=== PATIENT | male | born 1945 | race Caucasian/White ===

== ENCOUNTER 2017-04-02 00:43 | Day surgery (SDC) | payer MEDICARE, OTHER ==
[~2017-04-02 00:43] MED LIST: ALBU90OI; ALBU90OI INH; ALLO100 PO; ALPR.25; ALPR.5 PO; AMLO5 PO; ASPI325; ASPI81CH; Allergy Relief10 M1 PO; BECL40OI INH; Biotin1 MG; CALCIUM WITH V1 EACH PO; CALGLU500 PO; CEFP200 PO; CHOL10002 PO; CINA30 PO; COLCHICINE0.6 MG PO; DILT120; DILT60 PO; DOXY100 PO; FISH1000 PO; Gas-X80 MG; HYDR1TAB94 PO; LANS30EC; LEVA.63IS; LEVA1.25; LEVA1.25 INH; LEVFLO500 PO; LISI20; LISINOPRIL 40 MG; LORA.5 PO; LORA10ER; MERIBIN5 MG PO; METPRE4DP PO; MIDO5 PO; MONT10T; MONT10T PO; MULVITMINF PO; Mirapex0.25 MG PO; NITROSTAT PO; Nitrostat0.4 MG SL; OLME20; OLME20 PO; ONDA4ODT MM; OXYACE5T PO; Omeprazole20 M1 PO; PRAM.125; PRAM.5 PO; PRED10 PO; PRED20 PO; PRED5 PO; QNASL8.7 GM INH; QVAR; QVAR7.3 G1 INH; Rena-Vite Tabl0.8 MG PO; Renvela800 MG PO; SEVEC800 PO; SOTO80; STOOL SOFTENER100 MG PO; TEMA15 PO; TIOT18; TIOT18 INH; TRAZ50; TUMS PO; VITAMIN B-12 PO; VITB100 PO; Ventolin/Prove6.7 GM; WARF3; [UNRECOGNIZED DRUG - OTHER]; [UNRECOGNIZED DRUG - OTHER] INH; [UNRECOGNIZED DRUG - REMARK]
== END 2017-04-02 10:37 | disposition home or self-care (01) ==
LOC: WOUND 00:43
DX: Z48.00 Encounter for change or removal of nonsurgical wound dressing (principal); N30.41 Irradiation cystitis with hematuria; M65.041 Abscess of tendon sheath, right hand
CPT/HCPCS: G0463

== ENCOUNTER 2017-04-03 10:00 | Day surgery (SDC) | payer MEDICARE, OTHER | END 2017-04-03 22:57 | disposition home or self-care (01) | LOC: HBO 10:00 | DX: Z48.00 Encounter for change or removal of nonsurgical wound dressing (principal); N30.41 Irradiation cystitis with hematuria; M65.041 Abscess of tendon sheath, right hand | CPT/HCPCS: G0277 ==

== ENCOUNTER 2017-04-04 15:57 | Day surgery (SDC) | payer MEDICARE, OTHER | END 2017-04-04 22:41 | disposition home or self-care (01) | LOC: HBO 15:57 | DX: Z48.00 Encounter for change or removal of nonsurgical wound dressing (principal); N30.41 Irradiation cystitis with hematuria; M65.041 Abscess of tendon sheath, right hand | CPT/HCPCS: G0277 ==

== ENCOUNTER → 2017-07-23 | Outpatient (CLI) | payer MEDICARE, OTHER ==
[~2017-07-23] MED LIST changes: +MAGNESIUM PO; +OXYC5; +Prednisone50 MG PO; +QVAR REDIHALE10.6 G1 INH
== END ==
LOC: LAB 16:25
DX: L08.9 Local infection of the skin and subcutaneous tissue, unspecified (principal); C44.02 Squamous cell carcinoma of skin of lip; C44.722 Squamous cell carcinoma of skin of right lower limb, including hip; L97.819 Non-pressure chronic ulcer of other part of right lower leg with unspecified severity; L98.8 Other specified disorders of the skin and subcutaneous tissue; R60.0 Localized edema
CPT/HCPCS: 87070; 87077; 87147; 87186; 87205

== ENCOUNTER → 2017-08-22 | Outpatient (CLI) | payer MEDICARE, OTHER ==
[~2017-08-22] MED LIST changes: -MAGNESIUM PO; -OXYC5; -Prednisone50 MG PO; -QVAR REDIHALE10.6 G1 INH
== END | disposition home or self-care (01) ==
LOC: LAB SHORT 18:28 → LAB 18:28
DX: Z48.817 Encounter for surgical aftercare following surgery on the skin and subcutaneous tissue (principal)
CPT/HCPCS: 87070; 87205

== ENCOUNTER → 2017-08-30 | Outpatient (CLI) | payer MEDICARE, OTHER | LOC: LAB 15:14 → LAB SHORT 15:14 | DX: Z48.817 Encounter for surgical aftercare following surgery on the skin and subcutaneous tissue (principal); L08.9 Local infection of the skin and subcutaneous tissue, unspecified | CPT/HCPCS: 87070; 87205 ==

== ENCOUNTER 2017-10-23 18:50 | Emergency (ER) | payer MEDICARE, OTHER ==
[~2017-10-23] VITALS: Ht 180.3 cm; Wt 95.2 kg
[2017-10-23 19:31] LABS: BASOPHILS ABSOLUTE AUTO 0.03 K/mm3 (0.00-0.23); BASOPHILS PERCENT AUTO 1 % (0-2); EOSINOPHILS ABSOLUTE AUTO 0.15 K/mm3 (0.00-0.68); EOSINOPHILS PERCENT AUTO 3 % (0-6); Hematocrit 31.6 % (37.0-53.0); Hemoglobin 10.1 g/dL (13.5-17.5); IMMATURE GRAN ABSOLUTE AUTO 0.03 K/mm3 (0.00-0.10); IMMATURE GRAN PERCENT AUTO 1 % (0-1); LYMPHOCYTES ABSOLUTE AUTO 0.96 K/mm3 (0.84-5.20); LYMPHOCYTES PERCENT AUTO 17 % (21-46); MONOCYTES ABSOLUTE AUTO 0.66 K/mm3 (0.16-1.47); MONOCYTES PERCENT AUTO 12 % (4-13); Mean Corpuscular HGB 31.7 pg (26.0-34.0); Mean Corpuscular Volume 99 fL (80-100); Mean Platelet Volume 10.1 fL (9.1-12.4); NEUTROPHILS ABSOLUTE AUTO 3.82 K/mm3 (1.96-9.15); NEUTROPHILS PERCENT AUTO 68 % (41-73); Platelet Count 123 K/mm3 (150-400); RDW Coefficient Variation 15.6 % (11.7-14.2); RDW Standard Deviation 55.9 fL (35.1-46.3); Red Blood Cell Count 3.19 M/mm3 (4.30-5.90); White Blood Cell Count 5.65 K/mm3 (4.00-11.30)
[2017-10-23 19:36] LABS: Albumin, Blood 3.6 g/dL (3.4-5.0); Albumin/Globulin Ratio 1.2 (0.8-1.8); Bilirubin, Total 0.5 mg/dL (0.1-1.0); Bun/Creatinine Ratio 7.2 (12.0-20.0); Calcium, Blood 9.1 mg/dL (8.5-10.1); Creatinine, Blood 3.75 mg/dL (0.60-1.20); Globulin, Blood 3.1 g/dL (2.2-4.0); Potassium, Blood 3.9 mmol/L (3.5-5.5); Total Protein, Blood 6.7 g/dL (6.4-8.2)
[2017-10-23] MEDS ORDERED: Prednisone50 MG PO (21:15)
== END 2017-10-23 21:51 | disposition home or self-care (01) ==
LOC: ER 18:50
PROVIDERS: Physician Assistant
DX: J45.909 Unspecified asthma, uncomplicated (principal); N18.6 End stage renal disease; Z88.1 Allergy status to other antibiotic agents; Z88.8 Allergy status to other drugs, medicaments and biological substances; Z79.899 Other long term (current) drug therapy; Z79.52 Long term (current) use of systemic steroids; Z79.2 Long term (current) use of antibiotics; I48.91 Unspecified atrial fibrillation
CPT/HCPCS: 36415; 71046; 80053; 83880; 85025; 93005; 93010; 94640; 96374; 99284; J2930

== ENCOUNTER 2017-12-16 19:43 | Emergency (ER) | payer MEDICARE, OTHER ==
[~2017-12-16] VITALS: Ht 182.9 cm; Wt 95.2 kg
[~2017-12-16 19:43] MED LIST changes: +Prednisone50 MG PO
[2017-12-16] MEDS ORDERED: QVAR REDIHALE10.6 G1 INH (20:54)
[2017-12-16 20:58] LABS: BASOPHILS ABSOLUTE AUTO 0.02 K/mm3 (0.00-0.23); BASOPHILS PERCENT AUTO 0 % (0-2); EOSINOPHILS ABSOLUTE AUTO 0.28 K/mm3 (0.00-0.68); EOSINOPHILS PERCENT AUTO 4 % (0-6); Hematocrit 32.9 % (37.0-53.0); Hemoglobin 10.7 g/dL (13.5-17.5); IMMATURE GRAN ABSOLUTE AUTO 0.05 K/mm3 (0.00-0.10); IMMATURE GRAN PERCENT AUTO 1 % (0-1); LYMPHOCYTES ABSOLUTE AUTO 0.72 K/mm3 (0.84-5.20); LYMPHOCYTES PERCENT AUTO 10 % (21-46); MONOCYTES ABSOLUTE AUTO 0.65 K/mm3 (0.16-1.47); MONOCYTES PERCENT AUTO 9 % (4-13); Mean Corpuscular HGB 32.5 pg (26.0-34.0); Mean Corpuscular HGB Conc 32.5 g/dL (31.5-36.5); Mean Corpuscular Volume 100 fL (80-100); Mean Platelet Volume 9.8 fL (9.1-12.4); NEUTROPHILS ABSOLUTE AUTO 5.18 K/mm3 (1.96-9.15); NEUTROPHILS PERCENT AUTO 75 % (41-73); Platelet Count 128 K/mm3 (150-400); RDW Coefficient Variation 15.8 % (11.7-14.2); RDW Standard Deviation 57.4 fL (35.1-46.3); Red Blood Cell Count 3.29 M/mm3 (4.30-5.90)
[2017-12-16 21:19] LABS: Troponin I <0.015 ng/mL (0.000-0.040)
[2017-12-16 21:20] LABS: Alanine Aminotransfer (ALT/SGP 29 U/L (12-78); Albumin, Blood 3.5 g/dL (3.4-5.0); Albumin/Globulin Ratio 1.1 (0.8-1.8); Alk Phos 65 U/L (50-136); Anion Gap 9 mmol/L (6-16); Aspartate Aminotrans (AST/SGOT 19 U/L (12-37); Bilirubin, Total 0.7 mg/dL (0.1-1.0); Blood Urea Nitrogen 41 mg/dL (8-24); Bun/Creatinine Ratio 9.3 (12.0-20.0); CO2, Blood 35 mmol/L (21-32); Calcium, Blood 7.9 mg/dL (8.5-10.1); Chloride, Blood 99 mmol/L (98-108); Creatinine, Blood 4.43 mg/dL (0.60-1.20); Globulin, Blood 3.3 g/dL (2.2-4.0); Glomerular Filtration Rate 14 (60-); Glucose, Blood 105 mg/dL (70-99); Potassium, Blood 3.9 mmol/L (3.5-5.5); Sodium, Blood 143 mmol/L (136-145); Total Protein, Blood 6.8 g/dL (6.4-8.2)
== END 2017-12-16 22:42 | disposition home or self-care (01) ==
LOC: ER 19:43
PROVIDERS: Emergency Medicine
DX: J18.9 Pneumonia, unspecified organism (principal); Z79.899 Other long term (current) drug therapy; Z79.52 Long term (current) use of systemic steroids
CPT/HCPCS: 36415; 71046; 80053; 83880; 84484; 85025; 93005; 93010; 99285-25

== ENCOUNTER 2018-01-08 18:53 | Emergency (ER) | payer MEDICARE, OTHER ==
[~2018-01-08] VITALS: Ht 182.9 cm; Wt 94.3 kg
[~2018-01-08 18:53] MED LIST changes: +QVAR REDIHALE10.6 G1 INH
[2018-01-08 19:24] LABS: BASOPHILS ABSOLUTE AUTO 0.02 K/mm3 (0.00-0.23); BASOPHILS PERCENT AUTO 0 % (0-2); EOSINOPHILS ABSOLUTE AUTO 0.16 K/mm3 (0.00-0.68); EOSINOPHILS PERCENT AUTO 3 % (0-6); Hemoglobin 10.3 g/dL (13.5-17.5); IMMATURE GRAN ABSOLUTE AUTO 0.04 K/mm3 (0.00-0.10); IMMATURE GRAN PERCENT AUTO 1 % (0-1); LYMPHOCYTES PERCENT AUTO 13 % (21-46); MONOCYTES ABSOLUTE AUTO 0.57 K/mm3 (0.16-1.47); MONOCYTES PERCENT AUTO 11 % (4-13); Mean Corpuscular HGB 32.2 pg (26.0-34.0); Mean Corpuscular HGB Conc 32.2 g/dL (31.5-36.5); Mean Corpuscular Volume 100 fL (80-100); Mean Platelet Volume 9.6 fL (9.1-12.4); NEUTROPHILS ABSOLUTE AUTO 3.96 K/mm3 (1.96-9.15); NEUTROPHILS PERCENT AUTO 73 % (41-73); Platelet Count 126 K/mm3 (150-400); RDW Coefficient Variation 14.9 % (11.7-14.2); White Blood Cell Count 5.45 K/mm3 (4.00-11.30)
[2018-01-08 19:51] LABS: Albumin, Blood 3.5 g/dL (3.4-5.0); Albumin/Globulin Ratio 1.1 (0.8-1.8); Bilirubin, Total 0.6 mg/dL (0.1-1.0); Bun/Creatinine Ratio 5.8 (12.0-20.0); Calcium, Blood 8.2 mg/dL (8.5-10.1); Creatinine, Blood 3.79 mg/dL (0.60-1.20); Globulin, Blood 3.1 g/dL (2.2-4.0); Potassium, Blood 4.1 mmol/L (3.5-5.5); Total Protein, Blood 6.6 g/dL (6.4-8.2); Troponin I 0.019 ng/mL (0.000-0.040)
[2018-01-08] MEDS ORDERED: LEVA1.25 INH (21:32)
[2018-01-08] MEDS ORDERED: OXYC5 (21:40)
[2018-01-08] MEDS ORDERED: MAGNESIUM PO (21:42)
== END 2018-01-08 22:30 | disposition home or self-care (01) ==
LOC: ER 18:53
PROVIDERS: Physician Assistant
DX: R06.02 Shortness of breath (principal); Z88.1 Allergy status to other antibiotic agents; Z88.8 Allergy status to other drugs, medicaments and biological substances; Z79.899 Other long term (current) drug therapy
CPT/HCPCS: 36415; 71046; 80053; 84484; 85025; 93005; 93010; 99285-25

== ENCOUNTER → 2018-08-26 | Outpatient (CLI) | payer MEDICARE, OTHER ==
[~2018-08-26] MED LIST changes: +MAGNESIUM PO; +OXYC5
== END ==
LOC: LAB SHORT 09:41 → LAB 09:41
DX: D48.5 Neoplasm of uncertain behavior of skin (principal); L08.9 Local infection of the skin and subcutaneous tissue, unspecified; L57.0 Actinic keratosis; L97.819 Non-pressure chronic ulcer of other part of right lower leg with unspecified severity; L82.1 Other seborrheic keratosis; L81.4 Other melanin hyperpigmentation
CPT/HCPCS: 87070; 87077; 87147; 87186; 87205

== ENCOUNTER 2018-12-09 08:08 | Day surgery (SDC) | payer MEDICARE, OTHER ==
[~2018-12-09] VITALS: Ht 180.3 cm; Wt 88.0 kg
[~2018-12-09 08:08] MED LIST changes: +QVAR REDIHALE10.6 G1; +Renal Caps Softg1 MG; +SEVEC800
[2018-12-09] MEDS ORDERED: ALPR.5 (08:09)
[2018-12-09] MEDS ORDERED: TUMS500 MG PO (08:09)
[2018-12-09] MEDS ORDERED: ZINC220 (08:10)
[2018-12-09] MEDS ORDERED: PRED5 (08:10)
[2018-12-09] MEDS ORDERED: ONDA4ODT (08:11)
[2018-12-09] MEDS ORDERED: ACET500 (08:11)
[2018-12-09] MEDS ORDERED: ISODIN10 (08:12)
[2018-12-09] MEDS ORDERED: Vitamin D2000 UNIT (08:12)
[2018-12-09] MEDS ORDERED: MIDO5 (08:12)
[2018-12-09] MEDS ORDERED: SERT50 (08:13)
--- NOTE | 2018-12-09 11:22 | NUR ---
PT IV DC'D TIP INTACT, DRESSED, ATE BREAKFAST, PERMACATH DRESSING STABLE, DC'D BY WC BY MARSHALL RAY WITH DRIVING PT HOME. VSS.
== END 2018-12-09 11:02 | disposition home or self-care (01) ==
LOC: MHTC 08:08
DX: I12.0 Hypertensive chronic kidney disease with stage 5 chronic kidney disease or end stage renal disease (principal); N18.6 End stage renal disease; I48.0 Paroxysmal atrial fibrillation; K21.9 Gastro-esophageal reflux disease without esophagitis; J45.909 Unspecified asthma, uncomplicated; F41.9 Anxiety disorder, unspecified; F32.9 Major depressive disorder, single episode, unspecified; M81.0 Age-related osteoporosis without current pathological fracture; D64.9 Anemia, unspecified; N40.1 Benign prostatic hyperplasia with lower urinary tract symptoms; N13.8 Other obstructive and reflux uropathy; G25.81 Restless legs syndrome; G47.00 Insomnia, unspecified; I73.9 Peripheral vascular disease, unspecified; M41.9 Scoliosis, unspecified; Z99.2 Dependence on renal dialysis; Z88.1 Allergy status to other antibiotic agents; Z88.8 Allergy status to other drugs, medicaments and biological substances; Z79.899 Other long term (current) drug therapy
CPT/HCPCS: 36558; 76937; 99152; 99153; C1750; C1769; J0690; J1644; J2250; J3010; J7040

== ENCOUNTER 2018-12-24 11:20 | Day surgery (SDC) | payer MEDICARE, OTHER ==
[~2018-12-24 11:20] MED LIST changes: +ACET500; +ALPR.5; +ISODIN10; +MIDO5; +ONDA4ODT; +PRED5; +SERT50; +TUMS500 MG PO; +Vitamin D2000 UNIT; +ZINC220
== END 2018-12-24 18:40 | disposition home or self-care (01) ==
LOC: ATC 11:20
DX: N18.6 End stage renal disease (principal); D63.1 Anemia in chronic kidney disease; N25.81 Secondary hyperparathyroidism of renal origin; D50.9 Iron deficiency anemia, unspecified; Z79.899 Other long term (current) drug therapy; Z99.2 Dependence on renal dialysis
CPT/HCPCS: 36415; 36430; 86850; 86900; 86901; 86923; J7050; P9016

== ENCOUNTER 2019-06-16 13:41 | Inpatient (IN) | payer MEDICARE, OTHER ==
[~2019-06-16] VITALS: Ht 182.9 cm; Wt 89.4 kg
[~2019-06-16 13:41] MED LIST changes: -ALBU90OI INH; -ALLO100 PO; -ALPR.5; -DILT60 PO; -ISODIN10; -MERIBIN5 MG PO; -MIDO5; -MONT10T PO; -NITROSTAT PO; -OXYC5; -Omeprazole20 M1 PO; -PRED5; -QVAR REDIHALE10.6 G1; -TIOT18 INH; -VITAMIN B-12 PO; -Vitamin D2000 UNIT; -ZINC220
[2019-06-16 14:15] LABS: BASOPHILS ABSOLUTE AUTO 0.09 K/mm3 (0.00-0.23); BASOPHILS PERCENT AUTO 2 % (0-2); EOSINOPHILS ABSOLUTE AUTO 0.23 K/mm3 (0.00-0.68); EOSINOPHILS PERCENT AUTO 4 % (0-6); Hematocrit 36.5 % (37.0-53.0); Hemoglobin 11.7 g/dL (13.5-17.5); IMMATURE GRAN ABSOLUTE AUTO 0.02 K/mm3 (0.00-0.10); IMMATURE GRAN PERCENT AUTO 0 % (0-1); LYMPHOCYTES ABSOLUTE AUTO 1.04 K/mm3 (0.84-5.20); LYMPHOCYTES PERCENT AUTO 17 % (21-46); MONOCYTES ABSOLUTE AUTO 0.72 K/mm3 (0.16-1.47); MONOCYTES PERCENT AUTO 12 % (4-13); Mean Corpuscular HGB 32.6 pg (26.0-34.0); Mean Corpuscular HGB Conc 32.1 g/dL (31.5-36.5); Mean Corpuscular Volume 102 fL (80-100); Mean Platelet Volume 10.6 fL (9.1-12.4); NEUTROPHILS ABSOLUTE AUTO 3.88 K/mm3 (1.96-9.15); NEUTROPHILS PERCENT AUTO 65 % (41-73); Platelet Count 159 K/mm3 (150-400); RDW Coefficient Variation 16.1 % (11.7-14.2); RDW Standard Deviation 59.9 fL (35.1-46.3); Red Blood Cell Count 3.59 M/mm3 (4.30-5.90); White Blood Cell Count 5.98 K/mm3 (4.00-11.30)
[2019-06-16 14:31] LABS: International Normalized Ratio 1.05; Prothrombin Time Results 11.2 Sec (9.7-11.5)
[2019-06-16 14:36] LABS: Albumin, Blood 3.7 g/dL (3.4-5.0); Albumin/Globulin Ratio 1.2 (0.8-1.8); Bilirubin, Total 0.8 mg/dL (0.1-1.0); Bun/Creatinine Ratio 6.9 (12.0-20.0); Calcium, Blood 10.7 mg/dL (8.5-10.1); Creatinine, Blood 6.54 mg/dL (0.60-1.20); Globulin, Blood 3.1 g/dL (2.2-4.0); Potassium, Blood 3.5 mmol/L (3.5-5.5); Total Protein, Blood 6.8 g/dL (6.4-8.2)
[2019-06-16] MEDS ORDERED: VITAMIN D32000 UNI3 PO (15:25)
[2019-06-16] MEDS ORDERED: DILT60 PO (15:58)
[2019-06-16] MEDS ORDERED: ALLO100 PO (15:58)
[2019-06-16] MEDS ORDERED: COLCHICINE0.6 MG PO (15:59)
[2019-06-16] MEDS ORDERED: Omeprazole20 M1 PO (15:59)
[2019-06-16] MEDS ORDERED: MONT10T PO (15:59)
[2019-06-16] MEDS ORDERED: PRAM.125 PO (16:01)
[2019-06-16] MEDS ORDERED: PRED5 PO (16:02)
[2019-06-16] MEDS ORDERED: Isosorbide Dinit5 MG PO (16:03)
[2019-06-16] MEDS ORDERED: Vitamin D2000 UNIT PO (16:03)
[2019-06-16] MEDS ORDERED: RENA VITE PO (16:04)
[2019-06-16] MEDS ORDERED: Calcium Acetat667 MG PO (16:04)
[2019-06-16] MEDS ORDERED: MERIBIN5 MG PO (16:07)
[2019-06-16] MEDS ORDERED: VITAMIN B-12 PO (16:08)
[2019-06-16] MEDS ORDERED: ZINC50 MG PO (16:09)
[2019-06-16] MEDS ORDERED: TIOT18 INH (16:09)
[2019-06-16] MEDS ORDERED: Flovent 110 MCG12 GM INH (16:12)
[2019-06-16] MEDS ORDERED: NITROGLYCERIN0.4 M1 SL (16:15)
[2019-06-16] MEDS ORDERED: Percocet 5-3251 EACH PO (16:17)
[2019-06-16] MEDS ORDERED: ALPR.5 PO (16:18)
[2019-06-16] MEDS ORDERED: Midodrine HCl10 MG PO (16:19)
[2019-06-16] MEDS ORDERED: LEVA1.25 INH (16:19)
[2019-06-16] MEDS ORDERED: ALBU90OI INH (16:22)
--- NOTE | 2019-06-16 19:15 | NUR ---
BEDSIDE REPORT REC'D FROM MELANIA RAY. DR. GREGORIO IN TO SEE PT. SPOUSE AT BEDSIDE. VSS. ASSESSMENT NOTED. CALL LIGHT IN REACH. DIALYSIS FISTULA LEFT ARM. IV RT WRIST.
--- NOTE | 2019-06-16 19:26 | NUR ---
ADMIT NOTE RECEIVED REPORT FROM CORY KNAPP IN ED. PT TO ROOM AT 1825, 3 PERSON TRANSFER WITH SLIDER SHEET. PT ORIENTED TO ROOM AND CALL LIGHT. EDUCATED ON FALL RISK AND USE OF CALL LIGHT. HX OF MRSA, CLEARING SWABS COLLECTED AND SENT. PT A&Ox4; CALM AND COOPERATIVE WITH CARE. PT ON RA, BREATHING EVEN AND UNLABORED. VSS. NO OTHER ACUTE CHANGES NOTED DURING SHIFT. REPORT GIVEN TO ONCOMING RN
[2019-06-16 20:15] LABS: Source, Urine Catheter
[2019-06-16 20:21] LABS: Bilirubin, Urine Neg (Neg); Blood, Urine 3+ (Neg); Glucose Qualitative, Urine Neg (Neg); Ketones, Urine Neg (Neg); Leukocyte Esterase, Urine 3+ (Neg); Nitrite, Urine Neg (Neg); Protein, Urine 3+ (Neg); Specific Gravity, Urine 1.015 (1.003-1.022); Urobilinogen, Urine NORM (Normal)
[2019-06-16 20:25] LABS: Appearance, Urine Hazy (Clear); Color, Urine Yellow (P-Yellow)
[2019-06-16 20:28] LABS: Red Blood Cells, Urine 0-2 /hpf (0-2); White Blood Cells, Urine 25-50 /hpf (0-5)
[2019-06-16 20:30] LABS: Bacteria Few /hpf; Squamous Epithelial Cells Rare /hpf (Few)
[2019-06-17 04:13] LABS: BASOPHILS ABSOLUTE AUTO 0.07 K/mm3 (0.00-0.23); BASOPHILS PERCENT AUTO 1 % (0-2); EOSINOPHILS PERCENT AUTO 2 % (0-6); Hematocrit 32.7 % (37.0-53.0); Hemoglobin 10.4 g/dL (13.5-17.5); IMMATURE GRAN ABSOLUTE AUTO 0.02 K/mm3 (0.00-0.10); IMMATURE GRAN PERCENT AUTO 0 % (0-1); LYMPHOCYTES ABSOLUTE AUTO 0.82 K/mm3 (0.84-5.20); LYMPHOCYTES PERCENT AUTO 15 % (21-46); MONOCYTES ABSOLUTE AUTO 0.64 K/mm3 (0.16-1.47); MONOCYTES PERCENT AUTO 12 % (4-13); Mean Corpuscular HGB 32.2 pg (26.0-34.0); Mean Corpuscular HGB Conc 31.8 g/dL (31.5-36.5); Mean Corpuscular Volume 101 fL (80-100); Mean Platelet Volume 10.5 fL (9.1-12.4); NEUTROPHILS ABSOLUTE AUTO 3.91 K/mm3 (1.96-9.15); NEUTROPHILS PERCENT AUTO 70 % (41-73); Platelet Count 139 K/mm3 (150-400); RDW Standard Deviation 59.3 fL (35.1-46.3); Red Blood Cell Count 3.23 M/mm3 (4.30-5.90); White Blood Cell Count 5.56 K/mm3 (4.00-11.30)
[2019-06-17 04:35] LABS: Magnesium, Blood 1.9 mg/dL (1.6-2.4)
[2019-06-17 04:36] LABS: Albumin, Blood 3.2 g/dL (3.4-5.0); Albumin/Globulin Ratio 1.1 (0.8-1.8); Bilirubin, Total 0.8 mg/dL (0.1-1.0); Bun/Creatinine Ratio 6.5 (12.0-20.0); Calcium, Blood 10.5 mg/dL (8.5-10.1); Creatinine, Blood 7.81 mg/dL (0.60-1.20); Globulin, Blood 2.8 g/dL (2.2-4.0); Phosphorus, Blood 2.5 mg/dL (2.5-4.9); Potassium, Blood 3.7 mmol/L (3.5-5.5)
--- NOTE | 2019-06-17 06:25 | NUR ---
SHIFT SUMMARY NO SIG CHANGES AND NO NEW COMPLAINTS SINCE ARRIVING TO ROOM AT SHIFT CHANGE LAST EVENING. DR PAYNE IN TO SEE PT LAST NIGHT AND THIS MORNING. PT HAS BEEN NPO [place] FOR PARMINDER THIS AM WITH DR GREGORIO. PT ANXIOUS ABOUT OUTCOME. HAS CALLED APPROPRIATELY T/O THE NIGHT FOR STANDBY BR ASSIST. ELLIE LIGHT IN REACH. WILL CONT TO MONITOR, DOCUMENT ANY CHANGES AND WILL REPORT TO DAY SHIFT RN.
--- NOTE | 2019-06-17 17:36 | NUR ---
SHIFT NOTE PT HAD PARMINDER THIS AM, MORNING MEDS WERE HELD UNTIL PT WAS AWAKE POST PROCEDURE TO TAKE PO MEDICATIONS. PT HARD OF HEARTING WITH HEARING AIDS IN, S/O REMAINS AT BEDSIDE. PT ALERT, ANSWERS QUESTIONS APPROPRIATELY. PT REPORTS THAT HE HAS MILD DISCOMFORT POST PARMINDER, REPORTS AN EPISODE OF PINK TINGED SPUTUM THIS AFTERNOON. PT EATING AND DRINKING WELL W/O DIFF.
[2019-06-17 17:52] LABS: Vancomycin, Random 17.1 ug/mL
--- NOTE | 2019-06-18 04:12 | NUR ---
BED EXIT ALARM X TWO. PATIENT UP TO SIT ON SIDE OF BED. PATIENT NOT SURE SHAT TIME IT IS AND WHY HE IS IN HOSPITAL. PATIENT REORIENTED AND BACK IN BED. ALARM ACTIVATED. CALL LIGHT IN REACH.
--- NOTE | 2019-06-18 04:35 | NUR ---
SHIFT SUMMARY PATIENT HAD NO ACUTE CHANGES OBSERVED. AXOX 3 AND FORGETFUL AT TIMES. SBA TO BSC. DOUGLAS. TAKES MEDICATION WHOLE WITH WATER. PIV REMAINS INTACT. BREWERY TECHNICIAN REPORTS AFIB 103. FISTULA LEFT ARM. ON 2L O2 NC. DENIES PAIN, SOB, AND N/V. BED EXIT ALARM X TWO THIS SHIFT SITTING ON SIDE OF BED NOT SURE WHY HE IS HERE. REORIENTED TO TIME AND PLACE. CALL LIGHT IN REACH. BED IN LOWEST POSITION AND ALARM ACTIVATED. WILL CONTINUE TO MONITOR UNTIL DAY SHIFT NURSE ASSUMES CARE.
[2019-06-18 05:42] LABS: BASOPHILS ABSOLUTE AUTO 0.04 K/mm3 (0.00-0.23); BASOPHILS PERCENT AUTO 1 % (0-2); EOSINOPHILS ABSOLUTE AUTO 0.03 K/mm3 (0.00-0.68); EOSINOPHILS PERCENT AUTO 1 % (0-6); Hematocrit 31.8 % (37.0-53.0); IMMATURE GRAN ABSOLUTE AUTO 0.03 K/mm3 (0.00-0.10); IMMATURE GRAN PERCENT AUTO 1 % (0-1); LYMPHOCYTES ABSOLUTE AUTO 0.48 K/mm3 (0.84-5.20); LYMPHOCYTES PERCENT AUTO 8 % (21-46); MONOCYTES ABSOLUTE AUTO 0.37 K/mm3 (0.16-1.47); MONOCYTES PERCENT AUTO 6 % (4-13); Mean Corpuscular HGB 31.7 pg (26.0-34.0); Mean Corpuscular HGB Conc 31.4 g/dL (31.5-36.5); Mean Corpuscular Volume 101 fL (80-100); Mean Platelet Volume 10.8 fL (9.1-12.4); NEUTROPHILS ABSOLUTE AUTO 4.93 K/mm3 (1.96-9.15); NEUTROPHILS PERCENT AUTO 84 % (41-73); Platelet Count 144 K/mm3 (150-400); RDW Standard Deviation 58.2 fL (35.1-46.3); Red Blood Cell Count 3.15 M/mm3 (4.30-5.90); White Blood Cell Count 5.88 K/mm3 (4.00-11.30)
[2019-06-18 06:03] LABS: Magnesium, Blood 2.1 mg/dL (1.6-2.4)
[2019-06-18 06:08] LABS: Albumin, Blood 3.2 g/dL (3.4-5.0); Bilirubin, Total 0.6 mg/dL (0.1-1.0); Calcium, Blood 10.4 mg/dL (8.5-10.1); Globulin, Blood 3.1 g/dL (2.2-4.0); Phosphorus, Blood 3.4 mg/dL (2.5-4.9); Potassium, Blood 4.1 mmol/L (3.5-5.5); Total Protein, Blood 6.3 g/dL (6.4-8.2)
[2019-06-18 06:11] LABS: Bun/Creatinine Ratio 6.3 (12.0-20.0); Creatinine, Blood 9.94 mg/dL (0.60-1.20)
--- NOTE | 2019-06-18 14:06 | NUR ---
PT TO DIALYSIS
--- NOTE | 2019-06-18 16:14 | NUR ---
PT REMAINS IN DIALYSIS
--- NOTE | 2019-06-18 18:04 | NUR ---
SHIFT NOTE PT RETURNED FROM DIALYSIS JUST BEFORE 1800, ANGELA RAY AT BEDSIDE MEDICATING PT AT THIS TIME. PT BEEN UP TP BATHROOM WITH 1 PERSON ASSIST WO DIFF. PT ALERT ANSWERS MOST QUESTIONS APPROPRIATELY, IS VERY HARD OF HEARING EVEN WITH HEARING AIDS IN. DR NAVA WAS IN TO SEE PT, NEW ORDERS PLACED FOR ANTIBIOTICS AND PICC LINE. PICC LINE RN NOTIFIED BY DIRECTOR AGRICULTURAL SERVICES AMY
[2019-06-18 18:49] LABS: Vancomycin, Random 14.1 ug/mL
[2019-06-19 04:04] LABS: Hematocrit 32.4 % (37.0-53.0); Hemoglobin 10.3 g/dL (13.5-17.5)
[2019-06-19 04:29] LABS: Albumin, Blood 3.4 g/dL (3.4-5.0); Anion Gap 11 mmol/L (6-16); Blood Urea Nitrogen 64 mg/dL (8-24); Bun/Creatinine Ratio 7.2 (12.0-20.0); CO2, Blood 30 mmol/L (21-32); Calcium, Blood 9.8 mg/dL (8.5-10.1); Chloride, Blood 98 mmol/L (98-108); Creatinine, Blood 8.87 mg/dL (0.60-1.20); Glomerular Filtration Rate 6 (60-); Glucose, Blood 125 mg/dL (70-99); Phosphorus, Blood 3.4 mg/dL (2.5-4.9); Potassium, Blood 4.1 mmol/L (3.5-5.5); Sodium, Blood 139 mmol/L (136-145)
--- NOTE | 2019-06-19 04:51 | NUR ---
SHIFT SUMMARY PT A&O X4, VERY [place] W/ MILD CONFUSION. PT STATES "IF I HADN'T HAVE TAKEN MY HEARING AIDS OUT YOU GIRLS COULD HEAR ME BETTER." VSS. LUNG SOUNDS CLEAR. SPO2 > 92% ON 2L NC TITRATED TO RA THIS SHIFT. MONITOR SHOWS AFIB, HR 60's-90's. FISTULA NOTED TO BEBO. BED ALARM INITIALLY ON FOR PT SAFETY D/T PT NOT CALLING BEFORE ATTEMPTING TO GET OOB. PT NOW USING CALL LIGHT APPROPRIATELY. PT VOICING CONCERN OVER TRAVELING TO [facility] FOR DIALYSIS AND MEDICATION, ASKING IF CARE CAN BE PROVIDED AT HOME. CARE MANAGEMENT ASSISTING PT W/ PLANS FOR POST HOSPITAL CARE. WILL CONTINUE TO MONITOR AND PROVIDE CARE UNTIL REPORT OFF TO DAY SHIFT RN.
--- NOTE | 2019-06-19 13:10 | NUR ---
PT TO DIALYSIS
--- NOTE | 2019-06-19 15:51 | NUR ---
PT REMAINS IN DIALYSIS
[2019-06-19 16:46] LABS: Vancomycin, Random 15.4 ug/mL
--- NOTE | 2019-06-19 19:08 | NUR ---
SHIFT SUMMARY. 1715PT ARRIVED TO MEDICAL FLOOR FROM PCU.
[2019-06-20 04:07] LABS: HBSAG SCREEN Negative (Negative); HEP A AB, IGM Negative (Negative); HEP B CORE AB, IGM Negative (Negative); HEP C VIRUS AB <0.1 (0.0-0.9)
--- NOTE | 2019-06-20 04:29 | NUR ---
SHIFT SUMMARY PT BECAME MORE CONFUSED NIGHT WENT ON. PT ALSO HAD INCREASED ANXIETY. PT WAS REDIRECTABLE AND ABLE TO BE CALMED. PT HAS SLEPT OFF AND ON. PT CURRENTLY SLEEPING AND BREATHING EASY. CALL LIGHT IN REACH. BED ALARM ON.
[2019-06-20 05:19] LABS: Hemoglobin 10.1 g/dL (13.5-17.5)
[2019-06-20 05:38] LABS: Albumin, Blood 3.3 g/dL (3.4-5.0); Anion Gap 10 mmol/L (6-16); Blood Urea Nitrogen 60 mg/dL (8-24); Bun/Creatinine Ratio 8.3 (12.0-20.0); CO2, Blood 29 mmol/L (21-32); Calcium, Blood 9.5 mg/dL (8.5-10.1); Chloride, Blood 101 mmol/L (98-108); Creatinine, Blood 7.23 mg/dL (0.60-1.20); Glomerular Filtration Rate 8 (60-); Glucose, Blood 103 mg/dL (70-99); Phosphorus, Blood 3.2 mg/dL (2.5-4.9); Sodium, Blood 140 mmol/L (136-145)
[2019-06-20] MEDS ORDERED: Rocephin 1g1 G/50 ML IV (11:38)
[2019-06-20] MEDS ORDERED: HIGH POTENCY P1 EACH PO (11:39)
[2019-06-20] MEDS ORDERED: VANCO (11:43)
--- NOTE | 2019-06-20 13:24 | NUR ---
PT DISCHARGED THE PT AND HIS VERBALIZED UNDERSTANDING OF THE DC INSTRUCTIONS, THE PTS PRESCRIPTION FAXED TO [facility] REQUESTED, APPOINTMENT MADE FOR INFUSION [place] PRIOR TO DC, PT ENCOURAGED TO CALL PROVIDERS FOR FOLLOW UP, PT APPEARS TO BE BREATHING EASILY ON RA, PT TRANSFERED VIA WHEELCAIR ACCOMPANIED BY THE STOCK TURNER
[2019-06-22 12:27] LABS: Q FEVER PHASE I Negative (Neg:<1:16); Q FEVER PHASE II Negative (Neg:<1:16)
[2019-06-23 10:07] LABS: B. HENSELAE IGG Negative titer (Neg:<1:320); B. HENSELAE IGM Negative titer (Neg:<1:100); B. QUINTANA IGG Negative titer (Neg:<1:320); B. QUINTANA IGM Negative titer (Neg:<1:100)
== END 2019-06-20 12:40 | disposition home or self-care (01) | DRG 306 ==
LOC: ER 13:41 → MEDS 16:13 → PCU 16:13 → MEDS 06-19 17:13 → ENPENDDIS 06-20 11:26 → MEDS 06-20 12:40
PROVIDERS: Internal Medicine Infectious Disease; Internal Medicine Nephrology; Pharmacist; Physician Assistant; ADMIT Internal Medicine
DX: I05.9 Rheumatic mitral valve disease, unspecified (principal); N18.6 End stage renal disease; S22.31XA Fracture of one rib, right side, initial encounter for closed fracture; E44.0 Moderate protein-calorie malnutrition; I12.0 Hypertensive chronic kidney disease with stage 5 chronic kidney disease or end stage renal disease; Z99.2 Dependence on renal dialysis; I48.0 Paroxysmal atrial fibrillation; J44.9 Chronic obstructive pulmonary disease, unspecified; G25.81 Restless legs syndrome; I10 Essential (primary) hypertension; M10.9 Gout, unspecified; F41.8 Other specified anxiety disorders; B95.62 Methicillin resistant Staphylococcus aureus infection as the cause of diseases classified elsewhere; I71.9 Aortic aneurysm of unspecified site, without rupture; I45.10 Unspecified right bundle-branch block
CPT/HCPCS: 36415; 70450; 71045; 71250; 80053; 80069; 80074; 80202; 81001; 83605; 83735; 84100; 84145; 84484; 85014; 85018; 85025; 85610; 85651; 85730; 86317; 86611; 86638; 87040; 87077; 87081; 87086; 87147; 87186; 87449; 93005; 93010; 93306; 93312; 93325; 94640; 94762; 96365; 96367; 99285-25; J0696; J0878; J0881; J1644; J1720; J2250; J3010; J3370; J7030; J7050

== ENCOUNTER 2019-06-21 12:05 | Day surgery (SDC) | payer MEDICARE, OTHER ==
[~2019-06-21 12:05] MED LIST changes: +ALBU90OI INH; +ALLO100 PO; +Calcium Acetat667 MG PO; +DILT60 PO; +Flovent 110 MCG12 GM INH; +HIGH POTENCY P1 EACH PO; +Isosorbide Dinit5 MG PO; +MERIBIN5 MG PO; +MONT10T PO; +Midodrine HCl10 MG PO; +NITROGLYCERIN0.4 M1 SL; +Omeprazole20 M1 PO; +PRAM.125 PO; +Percocet 5-3251 EACH PO; +RENA VITE PO; +Rocephin 1g1 G/50 ML IV; +TIOT18 INH; +VANCO; +VITAMIN B-12 PO; +VITAMIN D32000 UNI3 PO; +Vitamin D2000 UNIT PO; +ZINC50 MG PO
== END 2019-06-21 13:45 | disposition home or self-care (01) ==
LOC: ATC 12:05
DX: I33.9 Acute and subacute endocarditis, unspecified (principal); J44.9 Chronic obstructive pulmonary disease, unspecified; I48.20 Chronic atrial fibrillation, unspecified; I12.0 Hypertensive chronic kidney disease with stage 5 chronic kidney disease or end stage renal disease; N18.6 End stage renal disease; G25.81 Restless legs syndrome; E44.0 Moderate protein-calorie malnutrition; I45.10 Unspecified right bundle-branch block; Z79.52 Long term (current) use of systemic steroids; Z79.51 Long term (current) use of inhaled steroids; Z88.1 Allergy status to other antibiotic agents; Z88.8 Allergy status to other drugs, medicaments and biological substances; Z79.899 Other long term (current) drug therapy; Z99.2 Dependence on renal dialysis; Z79.891 Long term (current) use of opiate analgesic
CPT/HCPCS: 96365; J0696

== ENCOUNTER 2019-06-22 08:25 | Day surgery (SDC) | payer MEDICARE, OTHER | END 2019-06-22 11:40 | disposition home or self-care (01) | LOC: ATC 08:25 | DX: I33.9 Acute and subacute endocarditis, unspecified (principal); I48.20 Chronic atrial fibrillation, unspecified; G25.81 Restless legs syndrome; J44.9 Chronic obstructive pulmonary disease, unspecified; I12.0 Hypertensive chronic kidney disease with stage 5 chronic kidney disease or end stage renal disease; N18.6 End stage renal disease; E44.0 Moderate protein-calorie malnutrition; Z88.1 Allergy status to other antibiotic agents; Z88.8 Allergy status to other drugs, medicaments and biological substances; Z99.2 Dependence on renal dialysis; Z79.51 Long term (current) use of inhaled steroids; Z79.52 Long term (current) use of systemic steroids; Z79.899 Other long term (current) drug therapy | CPT/HCPCS: 96365; 96367; J0696; J3370 ==

== ENCOUNTER 2019-06-23 00:10 | Day surgery (SDC) | payer MEDICARE, OTHER | END 2019-06-23 11:41 | disposition home or self-care (01) | LOC: ATC 00:10 | DX: I33.0 Acute and subacute infective endocarditis (principal) | CPT/HCPCS: 96365; J0696 ==

== ENCOUNTER 2019-06-24 00:12 | Day surgery (SDC) | payer MEDICARE, OTHER ==
--- NOTE | 2019-06-24 11:21 | NUR ---
PTS CALLED [facility] AND ASKED IF [facility] COULD MISS TODAY BECAUSE HE "FEELS SO BAD AFTER DIALYSIS" INFORMED PT THAT THEY HAVE THE RIGHT TO MISS BUT THE MEDICATION IS EVERY 24 HOURS. PT ARRIVED IN DEPT VIA W/C, SHAKING, WARM BLANKETS GIVEN, STATES THAT DIALYSIS DID 3 3/4 HOURS ON HIM AND SHUT HIM OFF EARLY BECAUSE HE WAS NOT FEELING WELL. VSS, ASKED PT HOW HE FEELS, PT CONFUSED AND SLURRING SPEECH SLIGHTLY. STATES THAT HE HAS BEEN "WACKY" TODAY. ASKED PT IF HE FELT BAD ENOUGH TO GO TO ER. PT STATES "YES, PLEASE TAKE ME TO ER, I DON'T FEEL SO WELL" KARINA MUIR RN GAVE REPORT TO ER CHARGE NURSE AND THIS RN WHEELED PT TO ER. ROCEPHIN WAS SPIKED AND GIVEN TO TRIAD RN INSTEAD OF WASTING IT, IN CASE THE ER WANTS TO GIVE.
== END 2019-06-24 11:25 | disposition home or self-care (01) ==
LOC: ATC 00:12
DX: I33.9 Acute and subacute endocarditis, unspecified (principal); I48.20 Chronic atrial fibrillation, unspecified; I12.0 Hypertensive chronic kidney disease with stage 5 chronic kidney disease or end stage renal disease; N18.6 End stage renal disease; G25.81 Restless legs syndrome; Z99.2 Dependence on renal dialysis; J44.9 Chronic obstructive pulmonary disease, unspecified; Z88.8 Allergy status to other drugs, medicaments and biological substances; Z88.1 Allergy status to other antibiotic agents; Z79.52 Long term (current) use of systemic steroids; Z79.891 Long term (current) use of opiate analgesic; E44.0 Moderate protein-calorie malnutrition; I45.10 Unspecified right bundle-branch block; Z85.46 Personal history of malignant neoplasm of prostate
CPT/HCPCS: 99211; J0696

== ENCOUNTER 2019-06-24 11:03 | Emergency (ER) | payer MEDICARE, OTHER ==
[~2019-06-24] VITALS: Ht 182.9 cm; Wt 90.7 kg
[2019-06-24 12:19] LABS: Albumin, Blood 3.4 g/dL (3.4-5.0); Albumin/Globulin Ratio 1.1 (0.8-1.8); Bun/Creatinine Ratio 7.7 (12.0-20.0); Calcium, Blood 9.5 mg/dL (8.5-10.1); Creatinine, Blood 5.49 mg/dL (0.60-1.20); Globulin, Blood 3.2 g/dL (2.2-4.0); Potassium, Blood 3.8 mmol/L (3.5-5.5); Total Protein, Blood 6.6 g/dL (6.4-8.2)
[2019-06-24 12:32] LABS: International Normalized Ratio 1.04; Prothrombin Time Results 11.1 Sec (9.7-11.5)
[2019-06-24 13:08] LABS: BASOPHILS ABSOLUTE AUTO 0.06 K/mm3 (0.00-0.23); BASOPHILS PERCENT AUTO 1 % (0-2); EOSINOPHILS ABSOLUTE AUTO 0.22 K/mm3 (0.00-0.68); EOSINOPHILS PERCENT AUTO 3 % (0-6); Hemoglobin 10.5 g/dL (13.5-17.5); IMMATURE GRAN ABSOLUTE AUTO 0.08 K/mm3 (0.00-0.10); IMMATURE GRAN PERCENT AUTO 1 % (0-1); LYMPHOCYTES ABSOLUTE AUTO 0.76 K/mm3 (0.84-5.20); LYMPHOCYTES PERCENT AUTO 9 % (21-46); MONOCYTES ABSOLUTE AUTO 0.94 K/mm3 (0.16-1.47); MONOCYTES PERCENT AUTO 11 % (4-13); Mean Corpuscular HGB 32.8 pg (26.0-34.0); Mean Corpuscular HGB Conc 32.8 g/dL (31.5-36.5); Mean Corpuscular Volume 100 fL (80-100); Mean Platelet Volume 11.8 fL (9.1-12.4); NEUTROPHILS ABSOLUTE AUTO 6.55 K/mm3 (1.96-9.15); NEUTROPHILS PERCENT AUTO 76 % (41-73); Platelet Count 126 K/mm3 (150-400); RDW Coefficient Variation 15.7 % (11.7-14.2); RDW Standard Deviation 57.4 fL (35.1-46.3); White Blood Cell Count 8.61 K/mm3 (4.00-11.30)
== END 2019-06-24 14:04 | disposition home or self-care (01) ==
LOC: ER 11:03
PROVIDERS: Physician Assistant
DX: R40.4 Transient alteration of awareness (principal); N18.9 Chronic kidney disease, unspecified; I48.91 Unspecified atrial fibrillation; J45.909 Unspecified asthma, uncomplicated; Z88.1 Allergy status to other antibiotic agents; Z88.8 Allergy status to other drugs, medicaments and biological substances; Z79.899 Other long term (current) drug therapy; Z79.52 Long term (current) use of systemic steroids; Z85.46 Personal history of malignant neoplasm of prostate
CPT/HCPCS: 70450; 71046; 80053; 83605; 85025; 85610; 93005; 93010; 96374; 99285-25; J0696

== ENCOUNTER 2019-06-25 00:06 | Day surgery (SDC) | payer MEDICARE, OTHER ==
--- NOTE | 2019-06-25 11:51 | NUR ---
DISCUSSED WITH PT AND THAT HE IS A FALL RISK AND HE NEEDS TO WALK WITH HIS WALKER. DISCUSSED WITH HIM ABOUT EATING PROTEIN AND DRINKING HIS AMOUNT OF WATER OR FLUIDS.
== END 2019-06-25 11:38 | disposition home or self-care (01) ==
LOC: ATC 00:06
DX: I33.9 Acute and subacute endocarditis, unspecified (principal); I13.2 Hypertensive heart and chronic kidney disease with heart failure and with stage 5 chronic kidney disease, or end stage renal disease; F41.9 Anxiety disorder, unspecified; N18.6 End stage renal disease; I50.9 Heart failure, unspecified; I48.20 Chronic atrial fibrillation, unspecified; E44.0 Moderate protein-calorie malnutrition; J44.9 Chronic obstructive pulmonary disease, unspecified; Z99.2 Dependence on renal dialysis; Z79.51 Long term (current) use of inhaled steroids; Z79.899 Other long term (current) drug therapy; Z88.1 Allergy status to other antibiotic agents; Z88.8 Allergy status to other drugs, medicaments and biological substances; Z79.891 Long term (current) use of opiate analgesic; G25.81 Restless legs syndrome; I45.10 Unspecified right bundle-branch block; Z85.46 Personal history of malignant neoplasm of prostate
CPT/HCPCS: 96365; J0696

== ENCOUNTER 2019-06-26 00:22 | Day surgery (SDC) | payer MEDICARE, OTHER | END 2019-06-26 11:45 | disposition home or self-care (01) | LOC: ATC 00:22 | DX: I33.9 Acute and subacute endocarditis, unspecified (principal); J44.9 Chronic obstructive pulmonary disease, unspecified; I13.2 Hypertensive heart and chronic kidney disease with heart failure and with stage 5 chronic kidney disease, or end stage renal disease; N18.6 End stage renal disease; I50.9 Heart failure, unspecified; I48.20 Chronic atrial fibrillation, unspecified; Z88.8 Allergy status to other drugs, medicaments and biological substances; Z88.1 Allergy status to other antibiotic agents; Z99.2 Dependence on renal dialysis; Z79.899 Other long term (current) drug therapy; Z79.891 Long term (current) use of opiate analgesic; G25.81 Restless legs syndrome; E44.0 Moderate protein-calorie malnutrition; I45.10 Unspecified right bundle-branch block; Z79.52 Long term (current) use of systemic steroids; Z85.46 Personal history of malignant neoplasm of prostate | CPT/HCPCS: J0696 ==

== ENCOUNTER 2019-06-28 13:42 | Day surgery (SDC) | payer MEDICARE, OTHER | END 2019-06-29 22:52 | disposition home or self-care (01) | LOC: ATC 13:42 | DX: I33.9 Acute and subacute endocarditis, unspecified (principal); I48.20 Chronic atrial fibrillation, unspecified; I12.0 Hypertensive chronic kidney disease with stage 5 chronic kidney disease or end stage renal disease; E44.0 Moderate protein-calorie malnutrition; N18.6 End stage renal disease; J44.9 Chronic obstructive pulmonary disease, unspecified; Z99.2 Dependence on renal dialysis; Z79.51 Long term (current) use of inhaled steroids; Z79.52 Long term (current) use of systemic steroids; G25.81 Restless legs syndrome; Z79.899 Other long term (current) drug therapy; Z88.0 Allergy status to penicillin; Z88.2 Allergy status to sulfonamides; Z88.1 Allergy status to other antibiotic agents; Z88.8 Allergy status to other drugs, medicaments and biological substances; I45.10 Unspecified right bundle-branch block; Z85.46 Personal history of malignant neoplasm of prostate | CPT/HCPCS: 96365; J0696 ==

== ENCOUNTER 2019-06-30 01:50 | Day surgery (SDC) | payer MEDICARE, OTHER | END 2019-06-30 11:39 | disposition home or self-care (01) | LOC: ATC 01:50 | DX: I33.0 Acute and subacute infective endocarditis (principal); I48.20 Chronic atrial fibrillation, unspecified; I13.2 Hypertensive heart and chronic kidney disease with heart failure and with stage 5 chronic kidney disease, or end stage renal disease; I50.9 Heart failure, unspecified; N18.6 End stage renal disease; J44.9 Chronic obstructive pulmonary disease, unspecified; Z79.01 Long term (current) use of anticoagulants; Z79.899 Other long term (current) drug therapy; Z88.1 Allergy status to other antibiotic agents; Z88.2 Allergy status to sulfonamides | CPT/HCPCS: 96365; J0696 ==

== ENCOUNTER 2019-07-03 00:59 | Day surgery (SDC) | payer MEDICARE, OTHER | END 2019-07-03 23:32 | disposition home or self-care (01) | LOC: ATC 00:59 | DX: I33.9 Acute and subacute endocarditis, unspecified (principal); I48.20 Chronic atrial fibrillation, unspecified; E44.0 Moderate protein-calorie malnutrition; I13.2 Hypertensive heart and chronic kidney disease with heart failure and with stage 5 chronic kidney disease, or end stage renal disease; I50.9 Heart failure, unspecified; N18.6 End stage renal disease; J44.9 Chronic obstructive pulmonary disease, unspecified; G25.81 Restless legs syndrome; I45.10 Unspecified right bundle-branch block; Z99.2 Dependence on renal dialysis; Z79.891 Long term (current) use of opiate analgesic; Z79.52 Long term (current) use of systemic steroids; Z85.46 Personal history of malignant neoplasm of prostate | CPT/HCPCS: J0696 ==

== ENCOUNTER 2019-07-04 02:14 | Day surgery (SDC) | payer MEDICARE, OTHER | END 2019-07-04 22:41 | disposition home or self-care (01) | LOC: ATC 02:14 | DX: I13.2 Hypertensive heart and chronic kidney disease with heart failure and with stage 5 chronic kidney disease, or end stage renal disease (principal); I33.9 Acute and subacute endocarditis, unspecified; N18.6 End stage renal disease; D64.9 Anemia, unspecified; I50.9 Heart failure, unspecified; J44.9 Chronic obstructive pulmonary disease, unspecified; F41.9 Anxiety disorder, unspecified; G25.81 Restless legs syndrome; Z79.899 Other long term (current) drug therapy; Z88.2 Allergy status to sulfonamides; Z88.1 Allergy status to other antibiotic agents; Z88.8 Allergy status to other drugs, medicaments and biological substances; Z99.2 Dependence on renal dialysis; I48.20 Chronic atrial fibrillation, unspecified; E44.0 Moderate protein-calorie malnutrition; I45.10 Unspecified right bundle-branch block; Z85.46 Personal history of malignant neoplasm of prostate; Z79.891 Long term (current) use of opiate analgesic ==

== ENCOUNTER 2019-07-05 01:57 | Day surgery (SDC) | payer MEDICARE, OTHER | END 2019-07-05 22:33 | disposition home or self-care (01) | LOC: ATC 01:57 | DX: I13.2 Hypertensive heart and chronic kidney disease with heart failure and with stage 5 chronic kidney disease, or end stage renal disease (principal); N18.6 End stage renal disease; D64.9 Anemia, unspecified; I33.9 Acute and subacute endocarditis, unspecified; I50.9 Heart failure, unspecified; J44.9 Chronic obstructive pulmonary disease, unspecified; F41.9 Anxiety disorder, unspecified; G25.81 Restless legs syndrome; Z79.899 Other long term (current) drug therapy; Z88.2 Allergy status to sulfonamides; Z88.1 Allergy status to other antibiotic agents; Z88.8 Allergy status to other drugs, medicaments and biological substances; Z99.2 Dependence on renal dialysis; I48.20 Chronic atrial fibrillation, unspecified; E44.0 Moderate protein-calorie malnutrition; I45.10 Unspecified right bundle-branch block; Z85.46 Personal history of malignant neoplasm of prostate; Z79.891 Long term (current) use of opiate analgesic ==

== ENCOUNTER 2019-12-01 10:14 | Emergency (ER) | payer MEDICARE, OTHER ==
[~2019-12-01] VITALS: Ht 182.9 cm; Wt 72.6 kg
[~2019-12-01 10:14] MED LIST changes: +ACET500 PO; +B-121000 MC3 PO; +DOCU100 PO; -Flovent 110 MCG12 GM INH; +GUAI600T33 PO; +LACT PO; +OCEAN104 ML; +ONDA4 PO; +OXYC5 PO; +PROBIOTIC PO; -Percocet 5-3251 EACH PO; +QVAR REDIHALE10.6 G2 INH; -RENA VITE PO; +RENAL-VITE TAB0.8 MG PO; +TRANSDERM-SCOP1 EACH TOP
[2019-12-01 10:50] LABS: BASOPHILS ABSOLUTE AUTO 0.05 K/mm3 (0.00-0.23); BASOPHILS PERCENT AUTO 1 % (0-2); EOSINOPHILS PERCENT AUTO 5 % (0-6); Hemoglobin 10.4 g/dL (13.5-17.5); IMMATURE GRAN ABSOLUTE AUTO 0.09 K/mm3 (0.00-0.10); IMMATURE GRAN PERCENT AUTO 1 % (0-1); LYMPHOCYTES ABSOLUTE AUTO 1.01 K/mm3 (0.84-5.20); LYMPHOCYTES PERCENT AUTO 14 % (21-46); MONOCYTES ABSOLUTE AUTO 0.55 K/mm3 (0.16-1.47); MONOCYTES PERCENT AUTO 7 % (4-13); Mean Corpuscular HGB 31.6 pg (26.0-34.0); Mean Corpuscular HGB Conc 31.5 g/dL (31.5-36.5); Mean Corpuscular Volume 100 fL (80-100); Mean Platelet Volume 10.5 fL (9.1-12.4); NEUTROPHILS ABSOLUTE AUTO 5.31 K/mm3 (1.96-9.15); NEUTROPHILS PERCENT AUTO 72 % (41-73); Platelet Count 134 K/mm3 (150-400); RDW Coefficient Variation 15.9 % (11.7-14.2); RDW Standard Deviation 57.5 fL (35.1-46.3); Red Blood Cell Count 3.29 M/mm3 (4.30-5.90); White Blood Cell Count 7.41 K/mm3 (4.00-11.30)
[2019-12-01 11:04] LABS: Albumin, Blood 3.3 g/dL (3.4-5.0); Bilirubin, Total 0.5 mg/dL (0.1-1.0); Bun/Creatinine Ratio 13.2 (12.0-20.0); Calcium, Blood 9.9 mg/dL (8.5-10.1); Creatinine, Blood 5.75 mg/dL (0.60-1.20); Globulin, Blood 3.2 g/dL (2.2-4.0); Potassium, Blood 5.5 mmol/L (3.5-5.5); Total Protein, Blood 6.5 g/dL (6.4-8.2); Troponin I 0.037 ng/mL (0.000-0.040)
[2019-12-05] MEDS ORDERED: COLCHICINE0.6 MG PO (19:45)
[2019-12-05] MEDS ORDERED: ISODIN10 PO (19:46)
[2019-12-05] MEDS ORDERED: ESCI10 PO (19:46)
[2019-12-05] MEDS ORDERED: MAGNESIUM OXID500 MG PO (19:47)
== END 2019-12-01 12:04 | disposition home or self-care (01) ==
LOC: ER 10:14
PROVIDERS: Physician Assistant
DX: S22.31XA Fracture of one rib, right side, initial encounter for closed fracture (principal); Z88.1 Allergy status to other antibiotic agents; Z88.8 Allergy status to other drugs, medicaments and biological substances; Z79.899 Other long term (current) drug therapy; I10 Essential (primary) hypertension; I48.91 Unspecified atrial fibrillation; F41.9 Anxiety disorder, unspecified; F32.9 Major depressive disorder, single episode, unspecified; Z86.14 Personal history of Methicillin resistant Staphylococcus aureus infection; W19.XXXA Unspecified fall, initial encounter
CPT/HCPCS: 36415; 71101; 80053; 84484; 85025; 99284-25

== ENCOUNTER 2020-02-08 20:15 | Emergency (ER) | payer MEDICARE, OTHER ==
[~2020-02-08] VITALS: Ht 182.9 cm; Wt 76.7 kg
[~2020-02-08 20:15] MED LIST changes: +ESCI10 PO; +ISODIN10 PO; +MAGNESIUM OXID500 MG PO
== END 2020-02-08 21:40 | disposition home or self-care (01) ==
LOC: ER 20:15
DX: M53.3 Sacrococcygeal disorders, not elsewhere classified (principal); E78.5 Hyperlipidemia, unspecified; I48.0 Paroxysmal atrial fibrillation; I12.0 Hypertensive chronic kidney disease with stage 5 chronic kidney disease or end stage renal disease; N18.6 End stage renal disease; F41.9 Anxiety disorder, unspecified; F32.9 Major depressive disorder, single episode, unspecified; Z87.81 Personal history of (healed) traumatic fracture; Z88.1 Allergy status to other antibiotic agents; Z88.8 Allergy status to other drugs, medicaments and biological substances; Z88.3 Allergy status to other anti-infective agents; Z99.2 Dependence on renal dialysis; Z79.899 Other long term (current) drug therapy
CPT/HCPCS: 99282

== ENCOUNTER 2020-03-02 10:57 | Emergency (ER) | payer MEDICARE, OTHER ==
[~2020-03-02] VITALS: Ht 182.9 cm; Wt 78.0 kg
[2020-03-02] MEDS ORDERED: DILT60 (11:26)
[2020-03-02] MEDS ORDERED: TEMA15 PO (11:27)
[2020-03-02] MEDS ORDERED: LEVALBUTER1.25 MG/1 (11:28)
[2020-03-02] MEDS ORDERED: OXYC5 PO (11:29)
[2020-03-02] MEDS ORDERED: SEVEC800 (11:30)
[2020-03-02] MEDS ORDERED: SERT50 PO (11:31)
[2020-03-02] MEDS ORDERED: CHLO10T PO (11:31)
[2020-03-02] MEDS ORDERED: CYCL10 PO (11:31)
[2020-03-02] MEDS ORDERED: DONE10 PO (11:32)
[2020-03-02 11:38] LABS: BASOPHILS ABSOLUTE AUTO 0.05 K/mm3 (0.00-0.23); BASOPHILS PERCENT AUTO 1 % (0-2); EOSINOPHILS ABSOLUTE AUTO 0.22 K/mm3 (0.00-0.68); EOSINOPHILS PERCENT AUTO 3 % (0-6); Hematocrit 33.8 % (37.0-53.0); Hemoglobin 10.5 g/dL (13.5-17.5); IMMATURE GRAN ABSOLUTE AUTO 0.03 K/mm3 (0.00-0.10); IMMATURE GRAN PERCENT AUTO 0 % (0-1); LYMPHOCYTES ABSOLUTE AUTO 0.91 K/mm3 (0.84-5.20); LYMPHOCYTES PERCENT AUTO 11 % (21-46); MONOCYTES ABSOLUTE AUTO 0.76 K/mm3 (0.16-1.47); MONOCYTES PERCENT AUTO 10 % (4-13); Mean Corpuscular HGB Conc 31.1 g/dL (31.5-36.5); Mean Corpuscular Volume 103 fL (80-100); Mean Platelet Volume 9.8 fL (9.1-12.4); NEUTROPHILS ABSOLUTE AUTO 6.02 K/mm3 (1.96-9.15); NEUTROPHILS PERCENT AUTO 75 % (41-73); Platelet Count 118 K/mm3 (150-400); RDW Standard Deviation 60.3 fL (35.1-46.3); Red Blood Cell Count 3.28 M/mm3 (4.30-5.90); White Blood Cell Count 7.99 K/mm3 (4.00-11.30)
[2020-03-02 11:50] LABS: Albumin, Blood 3.7 g/dL (3.4-5.0); Albumin/Globulin Ratio 1.2 (0.8-1.8); Bilirubin, Total 0.8 mg/dL (0.1-1.0); Bun/Creatinine Ratio 5.6 (12.0-20.0); Calcium, Blood 9.8 mg/dL (8.5-10.1); Creatinine, Blood 2.85 mg/dL (0.60-1.20); Globulin, Blood 3.2 g/dL (2.2-4.0); Potassium, Blood 3.4 mmol/L (3.5-5.5); Total Protein, Blood 6.9 g/dL (6.4-8.2)
[2020-03-02] MEDS ORDERED: PROM25 PO (13:36)
== END 2020-03-02 14:45 | disposition home or self-care (01) ==
LOC: ER 10:57
PROVIDERS: Emergency Medicine
DX: J18.9 Pneumonia, unspecified organism (principal); K92.0 Hematemesis; R04.2 Hemoptysis; N18.6 End stage renal disease; Z99.2 Dependence on renal dialysis; E78.5 Hyperlipidemia, unspecified; I48.0 Paroxysmal atrial fibrillation; I12.0 Hypertensive chronic kidney disease with stage 5 chronic kidney disease or end stage renal disease; Z88.1 Allergy status to other antibiotic agents; Z88.8 Allergy status to other drugs, medicaments and biological substances; Z79.899 Other long term (current) drug therapy
CPT/HCPCS: 36415; 71250; 80053; 83690; 85025; 93005; 93010; 96374; 99284-25; J2405

== ENCOUNTER 2020-03-09 03:58 | Emergency (ER) | payer MEDICARE, OTHER ==
[~2020-03-09] VITALS: Ht 182.9 cm; Wt 77.1 kg
[~2020-03-09 03:58] MED LIST changes: +CHLO10T PO; +CYCL10 PO; +DILT60; +DONE10 PO; +LEVALBUTER1.25 MG/1; +PROM25 PO; +SERT50 PO
[2020-03-09] MEDS ORDERED: ONDA4ODT MM (04:34)
[2020-03-09] MEDS ORDERED: NITR.4SL SL (04:35)
[2020-03-09] MEDS ORDERED: Isosorbide Dinit5 MG PO (04:40)
[2020-03-09] MEDS ORDERED: LEVSOD25 PO (04:42)
[2020-03-09 04:54] LABS: BASOPHILS ABSOLUTE AUTO 0.06 K/mm3 (0.00-0.23); BASOPHILS PERCENT AUTO 1 % (0-2); EOSINOPHILS PERCENT AUTO 8 % (0-6); Hemoglobin 10.8 g/dL (13.5-17.5); IMMATURE GRAN ABSOLUTE AUTO 0.06 K/mm3 (0.00-0.10); IMMATURE GRAN PERCENT AUTO 1 % (0-1); LYMPHOCYTES ABSOLUTE AUTO 1.14 K/mm3 (0.84-5.20); LYMPHOCYTES PERCENT AUTO 15 % (21-46); MONOCYTES ABSOLUTE AUTO 0.69 K/mm3 (0.16-1.47); MONOCYTES PERCENT AUTO 9 % (4-13); Mean Corpuscular HGB 31.8 pg (26.0-34.0); Mean Corpuscular HGB Conc 30.9 g/dL (31.5-36.5); Mean Corpuscular Volume 103 fL (80-100); Mean Platelet Volume 9.8 fL (9.1-12.4); NEUTROPHILS ABSOLUTE AUTO 4.97 K/mm3 (1.96-9.15); NEUTROPHILS PERCENT AUTO 66 % (41-73); Platelet Count 145 K/mm3 (150-400); RDW Coefficient Variation 15.7 % (11.7-14.2); White Blood Cell Count 7.52 K/mm3 (4.00-11.30)
[2020-03-09 05:09] LABS: Bun/Creatinine Ratio 9.4 (12.0-20.0); Calcium, Blood 10.9 mg/dL (8.5-10.1); Creatinine, Blood 5.83 mg/dL (0.60-1.20); Potassium, Blood 4.7 mmol/L (3.5-5.5)
== END 2020-03-09 06:05 | disposition home or self-care (01) ==
LOC: ER 03:58
PROVIDERS: Student in an Organized Health Care Education/Training Program
DX: K92.0 Hematemesis (principal); E78.5 Hyperlipidemia, unspecified; I48.0 Paroxysmal atrial fibrillation; I13.2 Hypertensive heart and chronic kidney disease with heart failure and with stage 5 chronic kidney disease, or end stage renal disease; N18.6 End stage renal disease; F41.9 Anxiety disorder, unspecified; F32.9 Major depressive disorder, single episode, unspecified; Z79.52 Long term (current) use of systemic steroids; Z79.899 Other long term (current) drug therapy; Z88.1 Allergy status to other antibiotic agents; Z88.8 Allergy status to other drugs, medicaments and biological substances; Z99.2 Dependence on renal dialysis
CPT/HCPCS: 36415; 71045; 80048; 85025; 99285-25

== ENCOUNTER 2020-04-02 08:02 | Emergency (ER) | payer MEDICARE, OTHER ==
[~2020-04-02] VITALS: Ht 182.9 cm; Wt 72.6 kg
[~2020-04-02 08:02] MED LIST changes: +LEVSOD25 PO; +NITR.4SL SL
[2020-04-02 08:36] LABS: BASOPHILS ABSOLUTE AUTO 0.06 K/mm3 (0.00-0.23); BASOPHILS PERCENT AUTO 1 % (0-2); EOSINOPHILS ABSOLUTE AUTO 0.36 K/mm3 (0.00-0.68); EOSINOPHILS PERCENT AUTO 6 % (0-6); Hematocrit 34.8 % (37.0-53.0); Hemoglobin 10.8 g/dL (13.5-17.5); IMMATURE GRAN ABSOLUTE AUTO 0.02 K/mm3 (0.00-0.10); IMMATURE GRAN PERCENT AUTO 0 % (0-1); LYMPHOCYTES ABSOLUTE AUTO 1.46 K/mm3 (0.84-5.20); LYMPHOCYTES PERCENT AUTO 24 % (21-46); MONOCYTES ABSOLUTE AUTO 0.78 K/mm3 (0.16-1.47); MONOCYTES PERCENT AUTO 13 % (4-13); Mean Corpuscular HGB 32.1 pg (26.0-34.0); Mean Corpuscular Volume 104 fL (80-100); Mean Platelet Volume 10.4 fL (9.1-12.4); NEUTROPHILS PERCENT AUTO 57 % (41-73); Platelet Count 118 K/mm3 (150-400); RDW Coefficient Variation 15.9 % (11.7-14.2); RDW Standard Deviation 59.4 fL (35.1-46.3); Red Blood Cell Count 3.36 M/mm3 (4.30-5.90); White Blood Cell Count 6.18 K/mm3 (4.00-11.30)
[2020-04-02 08:51] LABS: Albumin, Blood 3.5 g/dL (3.4-5.0); Albumin/Globulin Ratio 1.1 (0.8-1.8); Bilirubin, Total 0.7 mg/dL (0.1-1.0); Bun/Creatinine Ratio 5.2 (12.0-20.0); Calcium, Blood 10.4 mg/dL (8.5-10.1); Creatinine, Blood 4.61 mg/dL (0.60-1.20); Globulin, Blood 3.1 g/dL (2.2-4.0); Potassium, Blood 4.1 mmol/L (3.5-5.5); Total Protein, Blood 6.6 g/dL (6.4-8.2)
[2020-04-02 12:41] LABS: Influenza A, PCR Negative (NEGATIVE); Influenza B, PCR Negative (NEGATIVE); Resp Syncytial Virus, PCR Negative (NEGATIVE); SARS-Cov-2 (COVID-19) PCR, MMC Negative (NEGATIVE)
== END 2020-04-02 12:04 | disposition home or self-care (01) ==
LOC: ER 08:02
PROVIDERS: Emergency Medicine; Physician Assistant
DX: R04.2 Hemoptysis (principal); R31.9 Hematuria, unspecified; Z20.828 Contact with and (suspected) exposure to other viral communicable diseases; Z88.8 Allergy status to other drugs, medicaments and biological substances; Z88.1 Allergy status to other antibiotic agents; Z79.52 Long term (current) use of systemic steroids; Z79.899 Other long term (current) drug therapy
CPT/HCPCS: 0241U; 36415; 71045; 74176; 80053; 85025; 96374; 96375; 99284-25; J1170; J2405

== ENCOUNTER 2020-04-19 13:07 | Inpatient (IN) | payer MEDICARE, OTHER ==
[~2020-04-19] VITALS: Ht 185.4 cm; Wt 76.3 kg
[~2020-04-19 13:07] MED LIST changes: -ALBU90OI INH; -ALLO100 PO; -CHLO10T PO; -DILT60; -DONE10 PO; -MONT10T PO; -Midodrine HCl10 MG PO; -Omeprazole20 M1 PO; -PRAM.125 PO; -SERT50 PO
[2020-04-19 14:55] LABS: BASOPHILS ABSOLUTE AUTO 0.04 K/mm3 (0.00-0.23); BASOPHILS PERCENT AUTO 0 % (0-2); EOSINOPHILS ABSOLUTE AUTO 0.16 K/mm3 (0.00-0.68); EOSINOPHILS PERCENT AUTO 2 % (0-6); Hematocrit 30.7 % (37.0-53.0); Hemoglobin 9.6 g/dL (13.5-17.5); IMMATURE GRAN ABSOLUTE AUTO 0.11 K/mm3 (0.00-0.10); IMMATURE GRAN PERCENT AUTO 1 % (0-1); LYMPHOCYTES ABSOLUTE AUTO 0.62 K/mm3 (0.84-5.20); LYMPHOCYTES PERCENT AUTO 7 % (21-46); MONOCYTES ABSOLUTE AUTO 0.97 K/mm3 (0.16-1.47); MONOCYTES PERCENT AUTO 11 % (4-13); Mean Corpuscular HGB 31.3 pg (26.0-34.0); Mean Corpuscular HGB Conc 31.3 g/dL (31.5-36.5); Mean Corpuscular Volume 100 fL (80-100); Mean Platelet Volume 10.5 fL (9.1-12.4); NEUTROPHILS ABSOLUTE AUTO 7.04 K/mm3 (1.96-9.15); NEUTROPHILS PERCENT AUTO 79 % (41-73); NRBC ABSOLUTE 0.02 K/mm3 (0.00-0.02); NRBC Auto 0.2 /100 WBC (0.0-0.2); Platelet Count 138 K/mm3 (150-400); RDW Coefficient Variation 15.9 % (11.7-14.2); RDW Standard Deviation 57.1 fL (35.1-46.3); Red Blood Cell Count 3.07 M/mm3 (4.30-5.90); White Blood Cell Count 8.94 K/mm3 (4.00-11.30)
[2020-04-19 15:19] LABS: Albumin, Blood 3.3 g/dL (3.4-5.0); Albumin/Globulin Ratio 1.1 (0.8-1.8); Bilirubin, Total 0.9 mg/dL (0.1-1.0); Bun/Creatinine Ratio 9.1 (12.0-20.0); Calcium, Blood 10.2 mg/dL (8.5-10.1); Creatinine, Blood 4.97 mg/dL (0.60-1.20); Potassium, Blood 3.6 mmol/L (3.5-5.5); Total Protein, Blood 6.3 g/dL (6.4-8.2); Troponin I 0.048 ng/mL (0.000-0.040)
[2020-04-19] MEDS ORDERED: DILT60 PO ×2 (15:40→17:59)
[2020-04-19] MEDS ORDERED: XOPENEX1.25 MG/1 (15:41)
[2020-04-19] MEDS ORDERED: LOPE2C PO (15:42)
[2020-04-19] MEDS ORDERED: MIDODRINE HCL10 MG (15:42)
[2020-04-19] MEDS ORDERED: TRANSDERM-SCOP1 EAC3 (15:44)
[2020-04-19] MEDS ORDERED: MIDODRINE HCL10 MG PO (17:23)
[2020-04-19] MEDS ORDERED: ALBU90OI INH (17:52)
[2020-04-19] MEDS ORDERED: ALLO100 PO (17:52)
[2020-04-19] MEDS ORDERED: Midodrine HCl10 MG PO (17:54)
[2020-04-19] MEDS ORDERED: ALPR.5 PO (17:54)
[2020-04-19] MEDS ORDERED: Omeprazole20 M1 PO (17:55)
[2020-04-19] MEDS ORDERED: SERT50 PO (17:56)
[2020-04-19] MEDS ORDERED: CHLO10T PO (17:58)
[2020-04-19] MEDS ORDERED: PRAM.125 PO (17:59)
[2020-04-19] MEDS ORDERED: DONE10 PO (18:01)
[2020-04-19] MEDS ORDERED: SEVEC800 PO (18:02)
[2020-04-19] MEDS ORDERED: MONT10T PO (18:03)
[2020-04-19 18:56] LABS: Influenza A, PCR Negative (NEGATIVE); Influenza B, PCR Negative (NEGATIVE); Resp Syncytial Virus, PCR Negative (NEGATIVE); SARS-Cov-2 (COVID-19) PCR, MMC Negative (NEGATIVE)
[2020-04-19 19:12] LABS: PCO2 Arterial 53.4 mmHg (35-45); PO2 Arterial 63.1 mmHg (80-100); pH Blood Arterial 7.42 (7.35-7.45)
[2020-04-19 20:46] LABS: Adenovirus Not Detected (NOT DETECT); Bordetella pertussis Not Detected (NOT DETECT); Chlamydophila pneumoniae Not Detected (NOT DETECT); Coronavirus 229E Not Detected (NOT DETECT); Coronavirus HKU1 Not Detected (NOT DETECT); Coronavirus NL63 Not Detected (NOT DETECT); Coronavirus OC43 Not Detected (NOT DETECT); Human Metapneumovirus Not Detected (NOT DETECT); Human Rhinovirus/Enterovirus Not Detected (NOT DETECT); Influenza A/2009-H1 Not Detected (NOT DETECT); Influenza A/H1 Not Detected (NOT DETECT); Influenza A/H3 Not Detected (NOT DETECT); Influenza B Not Detected (NOT DETECT); Mycoplasma pneumoniae Not Detected (NOT DETECT); Parainfluenza Virus 1 Not Detected (NOT DETECT); Parainfluenza Virus 2 Not Detected (NOT DETECT); Parainfluenza Virus 3 Not Detected (NOT DETECT); Parainfluenza Virus 4 Not Detected (NOT DETECT); Respiratory Syncytial Virus Not Detected (NOT DETECT); SARS-Cov-2 (COVID-19), BioFire Not Detected (NOT DETECT)
--- NOTE | 2020-04-20 06:22 | NUR ---
SHIFT SUMMARY ADMITTED TO FLOOR LAST NIGHT FOR HYPOXIA, ALSO HAD GLF ON SATURDAY. AOX3-PLACE, SELF, SITUATION LAST NIGHT-COULD NOT STATE DATE. HOWEVER THIS MORNING STARTING AROUND 0345 PT HAS BEEN MORE CONFUSED, AOX1 ONLY. WHEN ASKED WHERE HE IS-STATES "I'M FISHING" EVEN AFTER REMINDING HIM HE'S AT THE HOSPITAL HE STILL STATED HE WAS "FISHING IN [place]" OFF HIS PROPERTY. PT HAS ALSO BEEN MORE TEARFUL SINCE INCREASED CONFUSION STARTED OCCURRING. REPORTED HE WAS "READY TO GO HOME" "I'VE HAD A GOOD LIFE, GOOD , GOOD GRANDKIDS". ABLE TO FOLLOW SIMPLE COMMANDS SUCH WIGGLING FEET & STICKING OUT TONGUE. HAS EQUAL COMPUTER SPECIALIST. VSS. TELE AFIB c BBB & PVCS @81. SPO2 DOES DROP TO 80'S ON RA, ON 2L O2 c SPO2 >90%. LUNGS DIM T/O c FINE CRACKLES BASES. COUGHED UP 2 MED/LRG BLOOD CLOTS c SPUTUM, ALSO HAS HAD WHITE-PINK FROTHY SPUTUM. DR PAYNE @BEDSIDE THIS AM, REPORTED PT WOULD HAVE DIALYSIS & ORDERED A SPEED WINDER CONSULT FOR HEMOPTYSIS. BLADDER SCANNED 1X PER ORDERS & ONLY 26ML IN BLADDER. HAS PAIN c MOVEMENT ON R SIDE/HIP AREA, KPAD PLACED, DENIES NEED FOR PAIN MEDICATION. CALL LIGHT IN REACH & BED ALARM IN PLACE.
[2020-04-20 07:12] LABS: BASOPHILS ABSOLUTE AUTO 0.04 K/mm3 (0.00-0.23); BASOPHILS PERCENT AUTO 1 % (0-2); EOSINOPHILS ABSOLUTE AUTO 0.09 K/mm3 (0.00-0.68); EOSINOPHILS PERCENT AUTO 1 % (0-6); Hematocrit 30.4 % (37.0-53.0); Hemoglobin 9.4 g/dL (13.5-17.5); IMMATURE GRAN ABSOLUTE AUTO 0.06 K/mm3 (0.00-0.10); IMMATURE GRAN PERCENT AUTO 1 % (0-1); LYMPHOCYTES PERCENT AUTO 10 % (21-46); MONOCYTES ABSOLUTE AUTO 0.89 K/mm3 (0.16-1.47); MONOCYTES PERCENT AUTO 12 % (4-13); Mean Corpuscular HGB 30.9 pg (26.0-34.0); Mean Corpuscular HGB Conc 30.9 g/dL (31.5-36.5); Mean Corpuscular Volume 100 fL (80-100); Mean Platelet Volume 10.6 fL (9.1-12.4); NEUTROPHILS ABSOLUTE AUTO 5.89 K/mm3 (1.96-9.15); NEUTROPHILS PERCENT AUTO 76 % (41-73); NRBC ABSOLUTE 0.02 K/mm3 (0.00-0.02); NRBC Auto 0.3 /100 WBC (0.0-0.2); Platelet Count 151 K/mm3 (150-400); RDW Coefficient Variation 15.8 % (11.7-14.2); Red Blood Cell Count 3.04 M/mm3 (4.30-5.90); White Blood Cell Count 7.77 K/mm3 (4.00-11.30)
[2020-04-20 07:29] LABS: Albumin, Blood 3.2 g/dL (3.4-5.0); Anion Gap 7 mmol/L (6-16); Blood Urea Nitrogen 59 mg/dL (8-24); Bun/Creatinine Ratio 9.8 (12.0-20.0); CO2, Blood 35 mmol/L (21-32); Calcium, Blood 9.9 mg/dL (8.5-10.1); Chloride, Blood 96 mmol/L (98-108); Creatinine, Blood 5.99 mg/dL (0.60-1.20); Glomerular Filtration Rate 10 (60-); Glucose, Blood 92 mg/dL (70-99); Magnesium, Blood 2.6 mg/dL (1.6-2.4); Phosphorus, Blood 5.9 mg/dL (2.5-4.9); Potassium, Blood 4.2 mmol/L (3.5-5.5); Sodium, Blood 138 mmol/L (136-145)
--- NOTE | 2020-04-20 17:37 | NUR ---
END OF SHIFT SUMMARY: PATIENT REPORTED THICK BLOODY SPUTUM. SAMPLE SAVED AND NOTIFIED DR. HODGSON AND DR. DE LA ROSA. NEW ORDERS ENTERED. PATIENT DENIED PAIN AT REST, BUT REPORTS PAIN AND CALLS OUT WITH REPOSITION. PATIENT WORKED WITH PT TO GET UP TO THE CHAIR. PATIENT BACK TO BED WITH TWO PERSON ASSIST. PATIENT FEARFUL OF MOVING AND HAD SOME DIFFICULTY FOLLOWING DIRECTIONS. PATIENT ABLE TO FOLLOW MOST DIRECTIONS TODAY. SPOKE WITH ABOUT THE PATIENT'S ORIENTATION. SHE REPORTED THAT HIS CONFUSION HAS BEEN INCREASING. AROUND 17:00, PATIENT EXPERIENCED SOME AGITATION AND INCREASED CONFUSION. ASSISTED THE PATIENT WITH CALLING HIS . SHE REPORTED THAT THIS HAPPENS AT HOME WELL. SAT WITH PATIENT AND RE-ORIENTED TO THE HOSPITAL. PATIENT CALMER AT THIS TIME. PATIENT SPO2>95% ON 2L TODAY. NO SOB OR RESPIRATORY DISTRESS NOTED. PATIENT NPO UNTIL SPEECH THERAPIST IS ABLE TO EVALUATE THE PATIENT. PATIENT TOLERATING WELL. VISITED THE PATIENT THIS AFTERNOON AND PLANS ON RETURNING TOMORROW.
[2020-04-21 05:35] LABS: Hematocrit 29.8 % (37.0-53.0); Hemoglobin 9.5 g/dL (13.5-17.5)
[2020-04-21 06:09] LABS: Albumin, Blood 3.1 g/dL (3.4-5.0); Anion Gap 8 mmol/L (6-16); Blood Urea Nitrogen 43 mg/dL (8-24); Bun/Creatinine Ratio 9.4 (12.0-20.0); CO2, Blood 31 mmol/L (21-32); Calcium, Blood 9.9 mg/dL (8.5-10.1); Chloride, Blood 100 mmol/L (98-108); Creatinine, Blood 4.59 mg/dL (0.60-1.20); Glomerular Filtration Rate 13 (60-); Glucose, Blood 95 mg/dL (70-99); Magnesium, Blood 2.4 mg/dL (1.6-2.4); Phosphorus, Blood 3.7 mg/dL (2.5-4.9); Potassium, Blood 4.3 mmol/L (3.5-5.5); Sodium, Blood 139 mmol/L (136-145)
--- NOTE | 2020-04-21 06:26 | NUR ---
SHIFT SUMMARY PATIENT WAS VERY CONFUSED OVERNIGHT. HE DIDN'T KNOW WHERE HE WAS AND WAS CONTINUALLY LOOKING FOR HIS . A COUPLE TIMES HE BECAME AGITATED AND THREATENED STAFF. HE DID NOT SLEEP AT ALL OVERNIGHT. IV PATENT AND FLUSHED. BED IN LOWEST POSITION WITH WHEELS LOCKED AND ALARM ON. CALL LIGHT WITHIN REACH. REPORT GIVEN TO ONCOMING RN.
--- NOTE | 2020-04-21 16:57 | NUR ---
Spiritual care note: Mr. Faulkner is pleasantly confused. He allowed me to pray for him, but then began talking about his love for his . He became very tearful when telling me how much he misses her. I helped him make a phone call to speak to her. He then lost interest in me. Search Marketing Coordinator services will remain available to pt and family.
--- NOTE | 2020-04-21 18:31 | NUR ---
PT AOX2 AND COOPERATIVE OF CARE. PT IS IMPULSIVE AND WILL NOT USE CALL LIGHT APPROPRIATELY. PT IS STILL HAVING R HIP PAIN AND IS TREATED PER EMAR. PT HAS BEEN DOING WELL WITH NEW DIET AND TAKING PILLS WHOLE WITH APPLE SAUCE. PT IS A 1-2 PERSON TO BEDSIDE COMMODE OR CHAIR. WILL CONTINUE TO MONITOR BED ALARM IN PLACE.
[2020-04-22 05:20] LABS: Hematocrit 30.9 % (37.0-53.0); Hemoglobin 9.6 g/dL (13.5-17.5)
[2020-04-22 05:46] LABS: Albumin, Blood 3.1 g/dL (3.4-5.0); Anion Gap 7 mmol/L (6-16); Blood Urea Nitrogen 58 mg/dL (8-24); Bun/Creatinine Ratio 9.2 (12.0-20.0); CO2, Blood 30 mmol/L (21-32); Calcium, Blood 9.7 mg/dL (8.5-10.1); Chloride, Blood 100 mmol/L (98-108); Creatinine, Blood 6.28 mg/dL (0.60-1.20); Glomerular Filtration Rate 9 (60-); Glucose, Blood 101 mg/dL (70-99); Magnesium, Blood 2.4 mg/dL (1.6-2.4); Phosphorus, Blood 3.9 mg/dL (2.5-4.9); Potassium, Blood 4.6 mmol/L (3.5-5.5); Sodium, Blood 137 mmol/L (136-145)
--- NOTE | 2020-04-22 06:44 | NUR ---
SHIFT SUMMARY PATIENT SEEMS STRONGER TONIGHT THAN HE WAS LAST NIGHT. WAS ABLE TO GET UP TO THE COMMODE TWICE OVERNIGHT. HE DOES HAD DIFFICULTY MOVING HIS FEET WHEN HE IS STANDING. HE STILL REQUIRES A TWO PERSON ASSIST. HAD NO COMPLAINTS OF PAIN OR SHORTNESS OF BREATH. IV PATENT AND FLUSHED. BED IN LOWEST POSITION WITH WHEELS LOCKED AND ALARM ON. CALL LIGHT WITHIN REACH. REPORT GIVEN TO ONCOMING RN.
[2020-04-22 14:03] LABS: Vancomycin, Random 10.7 ug/mL
--- NOTE | 2020-04-22 15:49 | NUR ---
PT BP THIS AFTERNOON WAS 92/45, CONTACTED JUDY AND SHE ASKED ME TO CALL KERRY REGARDING THIS BP. KERRY WAS INFORMED AND STATED THE BP WAS FINE, NO FURTHER ACTION AT THIS TIME.
--- NOTE | 2020-04-22 17:57 | NUR ---
SHIFT SUMMARY NO ACUTE CHANGES T/O SHIFT, CALM AND COOPERATIVE c CARE, A&O TO SELF AND FAMILY. UNAWARE OF WHERE HE IS AND WHY AT TIMES. PT HAD DIALYSIS THIS AM. PT EXPERIENCING PAIN OF THE RIGHT HIP FROM A RECENT FALL c MOVEMENT. TREATED PER EMAR AND REPOSITIONING. MEPILEX AND BARRIER CREAM PLACED ON COCCYX AFTER NOTICING REDNESS. NO OPEN WOUND/ULCER NOTED. PT DID HAVE A BP OF 92/45, KERRY AND JUDY WERE INFORMED, KERRY STATED NO ACTION BE TAKEN AT THIS TIME. DAUGHTER WAS AT BEDSIDE AND ASKED ABOUT XANAX. DISCUSSED c JUDY AND SHE STATED SHE IS HOLDING OFF ON XANAX BECAUSE THE PT WAS PRETTY CONFUSED YESTERDAY. PT TOLERATED ORAL MEDS AND FOOD WELL TODAY. PT IS CURRENTLY SITTING UP IN CHAIR EATING DINNER, CALL LIGHT IS WITHIN REACH.
--- NOTE | 2020-04-22 18:43 | NUR ---
Clinical Visit: Pt is alert, confused. His is at bedside. Discussed existing POLST form with pt and . confirmed DNR/DNI and signed new POLST document. Left in chart for doctor signature. Pt becoming very anxious. states he usually takes xanax at home. Dose is 0.5mg once per day PRN.
--- NOTE | 2020-04-23 03:39 | NUR ---
PATIENT HAS NOT SLEPT ALL NIGHT. HE IS VERY CONFUSED AND DISORIENTED. CONSTANTLY CALLING OUT FOR "HELP" BUT WHEN ASKED WHAT HE NEEDS HELP WITH HE STATES HE NEEDS TO GET OUT OF HERE. PATIENT HAS ATTEMPTED TO CLIMB OUT OF BED NUMEROUS TIMES T/O THE NIGHT. HE HAS BEEN ASSISTED WITH TOILETING ALSO NUMEROUS TIMES WITHOUT RESULTS UNTIL THIS LAST TIME WHERE HE PUT OUT 50cc OF URINE. PATIENT HAS BEEN VERBALLY ABUSIVE WITH STAFF ALL NIGHT AND LATER IN THE NIGHT STARTED TO BECOME PHYSICALLY ABUSIVE. DR. MALDONADO CALLED AND ORDERS OBTAINED TO PLACE PATIENT IN A MICHAEL VEST. VEST PLACED AT 0300. PATIENT CALMED DOWN FOR ABOUT TWENTY MINUTES BUT HAS BEGAN TO YELL OUT AGAIN. WILL CONTINUE TO CHECK IN ON PATIENT AND PROVIDE HIM ADL's. BED ALARM ON. CALL LIGHT IN REACH.
--- NOTE | 2020-04-23 05:09 | NUR ---
report given to Celsa RAY. Patient transfered to the SCU room 347. Celsa to assume patient care at this time.
--- NOTE | 2020-04-23 05:14 | NUR ---
ASSUMED CARE ASSUMED CARE OF PT AT 0500. PT HAS A MICHAEL ON, RESTING COMFORTABLY.
[2020-04-23 05:28] LABS: Hematocrit 29.6 % (37.0-53.0); Hemoglobin 9.4 g/dL (13.5-17.5)
[2020-04-23 05:49] LABS: Albumin, Blood 2.8 g/dL (3.4-5.0); Anion Gap 6 mmol/L (6-16); Blood Urea Nitrogen 50 mg/dL (8-24); Bun/Creatinine Ratio 9.7 (12.0-20.0); CO2, Blood 33 mmol/L (21-32); Calcium, Blood 9.8 mg/dL (8.5-10.1); Chloride, Blood 102 mmol/L (98-108); Creatinine, Blood 5.15 mg/dL (0.60-1.20); Glomerular Filtration Rate 12 (60-); Glucose, Blood 114 mg/dL (70-99); Magnesium, Blood 2.3 mg/dL (1.6-2.4); Phosphorus, Blood 2.4 mg/dL (2.5-4.9); Potassium, Blood 4.2 mmol/L (3.5-5.5); Sodium, Blood 141 mmol/L (136-145)
[2020-04-23 14:38] LABS: Vancomycin, Random 22.9 ug/mL
--- NOTE | 2020-04-23 17:27 | NUR ---
PATIENT A/O TO SELF AND FAMILY ONLY. VSS, ON RA. UP WITH FWW, GB AND 2 ASSIST, TO CHAIR. VERY ANXIOUS AT TIMES, BETTER ONCE CAME TO VISIT. XANAX ORDERED PRN BEFORE BEDTIME. VEST RESTRAINT REMOVED THIS AM AT 0800 AND PATIENT HAS NOT ATTEMPTED TO GET UP UNASSISTED. VOIDS SMALL AMOUNTS FREQUENTLY. LARGE BM THIS SHIFT. TOLERATING RENAL DIET, ASPIRATION PRECAUTIONS. FISTULA TO L ARM, B/P'S ON R ONLY. PERM CATH TO R CHEST, NO DIALYSIS TODAY. 20G IV TO R AC WNL AND SL. PATIENT COOPERATIVE WITH CARE AND ABLE TO MAKE NEEDS KNOWN.
--- NOTE | 2020-04-24 04:18 | NUR ---
SHIFT SUMMARY ASSUMED CARE OF PT AT 1900. PT IS A/OX1 TO SELF. HEART SOUNDS REGULAR, LUNG SOUNDS CLEAR. PT WAS VERY AGITATED AT THE BEGINNING OF THE SHIFT, PT ATTEMPTED TO URINATE 3 TIMES WITHOUT SUCCESS. PT WAS A 1P TO [facility] [place]. PT ASKED FOR SNACKS CONSTANTLY. PT RECEIVED EXTRA DOSE OF SEROQUEL WITHOUT SUCCESS ON BEHAVIOR. AT 0000 PT C/O NEASEA, PT WAS GIVEN PAIN MEDICATION AND ZOFRAN AND FINALLY FELL ASLEEP. CALL LIGHT IN REACH, BED IN LOWEST POSITION, BED ALARM ON.
[2020-04-24 04:44] LABS: Hematocrit 27.6 % (37.0-53.0); Hemoglobin 8.8 g/dL (13.5-17.5)
[2020-04-24 05:04] LABS: Albumin, Blood 2.7 g/dL (3.4-5.0); Anion Gap 6 mmol/L (6-16); Blood Urea Nitrogen 65 mg/dL (8-24); Bun/Creatinine Ratio 10.2 (12.0-20.0); CO2, Blood 33 mmol/L (21-32); Calcium, Blood 9.8 mg/dL (8.5-10.1); Chloride, Blood 101 mmol/L (98-108); Creatinine, Blood 6.39 mg/dL (0.60-1.20); Glomerular Filtration Rate 9 (60-); Glucose, Blood 103 mg/dL (70-99); Magnesium, Blood 2.3 mg/dL (1.6-2.4); Phosphorus, Blood 3.8 mg/dL (2.5-4.9); Potassium, Blood 4.6 mmol/L (3.5-5.5); Sodium, Blood 140 mmol/L (136-145)
[2020-04-24 11:57] LABS: Vancomycin, Random 13.6 ug/mL
--- NOTE | 2020-04-24 17:58 | NUR ---
PATIENT VERY DROWSY THIS AM AND THROUGH LUNCH. WENT DOWN FOR DIALYSIS TODAY. WOKE THIS EVENING AND ATE SOME DINNER. BRENNEN AT BEDSIDE AND PLANS TO TAKE PATIENT HOME TOMORROW WITH HOME HEALTH. PATIENT IS DIFFICULT TO TRANSFER AND WAS UNABLE TO THIS EVENING. BRENNEN WAS AT BEDSIDE WHEN HE WAS UNABLE AND STILL FEELS THAT SHE CAN CARE FOR HIM AT HOME. PATIENT HAS HOME HEALTH AND BRENNEN SAYS SHE HAS OTHER HELP WELL. PATIENT WILL NEED 2 WEEKS OF VANCOMYCIN WHICH HE WILL RECEIVE WITH DIALYSIS. FALL PRECAUTIONS IN PLACE. PATIENT CALM AND COOPERATIVE WITH CARE TODAY.
--- NOTE | 2020-04-25 04:01 | NUR ---
SHIFT SUMMARY ASSUMED CARE OF PT AT 1900. PT IS A/OX2. PT HAD A ROUGH NIGHT. PT WAS INTITIALLY CONFUSED ABOUT THE TIME AND THOUGHT THAT IT WAS 0830 IN THE MORNING. PT WANTED TO ELLIE ABOUT THIS. PT MOANS IN PAIN, TYLENOL GIVEN, BUT WITH LITTLE RELEIF. WHEN PT WAS REPOSITIONED, PT WAS ABLE TO SLEEP FOR A COUPLE HOURS BEFORE HE WAS WOKEN BY A BED ALRM FROM A DIFFERENT ROOM. PT ASKED FOR SNACKS REPEATIVELY AND STATES ONCE THAT HE WAS BORED AND LONELY AND MISSED HIS . PT WAS SEEN BY DR PAYNE THIS PM AND STATED THAT HE WAS DOING WELL BUT WAS CONCERNED FOR HIS , WHO JAMARCUS BE TAKING CARE OF HIM WHEN HE GETS HOME. CALL LIGHT IN REACH, BED IN LOWEST POSTION.
[2020-04-25 04:39] LABS: Hematocrit 29.5 % (37.0-53.0); Hemoglobin 9.2 g/dL (13.5-17.5)
[2020-04-25 05:00] LABS: Albumin, Blood 2.8 g/dL (3.4-5.0); Anion Gap 3 mmol/L (6-16); Blood Urea Nitrogen 51 mg/dL (8-24); Bun/Creatinine Ratio 9.9 (12.0-20.0); CO2, Blood 34 mmol/L (21-32); Calcium, Blood 9.6 mg/dL (8.5-10.1); Chloride, Blood 103 mmol/L (98-108); Creatinine, Blood 5.17 mg/dL (0.60-1.20); Glomerular Filtration Rate 12 (60-); Glucose, Blood 105 mg/dL (70-99); Phosphorus, Blood 3.5 mg/dL (2.5-4.9); Potassium, Blood 4.5 mmol/L (3.5-5.5); Sodium, Blood 140 mmol/L (136-145)
[2020-04-25] MEDS ORDERED: MOME220I INH (13:03)
[2020-04-25] MEDS ORDERED: VISBIOME PROBI1 EACH PO (13:04)
--- NOTE | 2020-04-25 14:55 | NUR ---
OCCUPATIONAL THERAPY RECCOMENDED SNF AFTER WORKING WITH THE PATIENT TODAY. THE PATIENT'S AND THE PATIENT HIMSELF SAID THEY FEEL COMFORTABLE GOING HOME WITH HOME HEALTH AND FAMILY TO CARE FOR THE PATIENT. DR. COATS WAS NOTIFIED THAT OCCUPATIONAL THERAPY RECOMMENDED SNF. DR. COATS SAID THE PATIENT IS TO GO HOME WITH HOME HEALTH PLANNED. THE PATIENT WAS TRANSFERRED FROM THE WHEELCHAIR TO HIS PERSONAL VEHICLE WITH A 2PA. THE PATIENT'S STATES SHE WILL HAVE HELP TRANSFERRING THE PATIENT TO HIS OWN WHEELCHIAR AT [facility]. A URINAL, BEDPAN AND EXTRA ATTENDS WERE SENT HOME WITH THE PATIENT. IV WAS REMOVED BEFORE DISCHARGE.
--- NOTE | 2020-04-25 15:01 | NUR ---
THE PATIENT'S STATES THE PATIENT'S HEARING AIDS WERE LEFT HERE IN THE PATIENT'S ROOM. SHE STATES SHE SAW THEM HERE YESTERDAY WHEN SHE VISITED. THE HEARING AIDS WERE NO WHERE TO BE FOUND BY THIS RN OR THE TABLET MACHINE OPERATOR. THE HAS BEEN ENCOURAGED TO LOOK AT HOME FOR THE HEARING AIDS. THE PATIENT ADVOCATE HAS BEEN NOTIFIED. THE PATIENT ADVOCATES CARD WAS SENT HOME WITH THE PATIENT AND HIS .
== END 2020-04-25 14:42 | disposition home health service (06) | DRG 280 ==
LOC: ER 13:07 → MEDS 13:08 → ENPENDDIS 04-25 11:36 → MEDS 04-25 14:42
PROVIDERS: Emergency Medicine; Family Medicine; Internal Medicine Nephrology; Nurse Practitioner Acute Care; ADMIT Internal Medicine
PROC: 5A1D70Z Performance of Urinary Filtration, Intermittent, Less than 6 Hours Per Day (ICD-10-PCS; principal; 2020-04-21)
DX: I13.2 Hypertensive heart and chronic kidney disease with heart failure and with stage 5 chronic kidney disease, or end stage renal disease (principal); I50.33 Acute on chronic diastolic (congestive) heart failure; I21.A1 Myocardial infarction type 2; N18.6 End stage renal disease; G92 Toxic encephalopathy; J96.01 Acute respiratory failure with hypoxia; J96.02 Acute respiratory failure with hypercapnia; J15.212 Pneumonia due to Methicillin resistant Staphylococcus aureus; R04.2 Hemoptysis; J44.0 Chronic obstructive pulmonary disease with (acute) lower respiratory infection; N25.81 Secondary hyperparathyroidism of renal origin; Z66 Do not resuscitate; Z20.828 Contact with and (suspected) exposure to other viral communicable diseases; Z99.2 Dependence on renal dialysis; D63.1 Anemia in chronic kidney disease; E78.5 Hyperlipidemia, unspecified; F32.9 Major depressive disorder, single episode, unspecified; F41.9 Anxiety disorder, unspecified; I35.0 Nonrheumatic aortic (valve) stenosis; I48.0 Paroxysmal atrial fibrillation; Z85.46 Personal history of malignant neoplasm of prostate; Z91.81 History of falling; K21.9 Gastro-esophageal reflux disease without esophagitis; F03.90 Unspecified dementia, unspecified severity, without behavioral disturbance, psychotic disturbance, mood disturbance, and anxiety; I95.1 Orthostatic hypotension; Z90.5 Acquired absence of kidney; E87.70 Fluid overload, unspecified
CPT/HCPCS: 0202U; 0241U; 36415; 36600; 70450; 71045; 71260; 72125; 73502; 80053; 80069; 80202; 82803; 83735; 83880; 84100; 84145; 84484; 85014; 85018; 85025; 85379; 87070; 87077; 87147; 87186; 87205; 92526; 92610; 93005; 93010; 94640; 94664; 94667; 94760; 94762; 96374-59; 97110; 97116; 97162; 97165; 97530; 97535; 98960; 99285-25; A9270; G0378; J0696; J0881; J2405; J3370; J7050; J7060; Q9967

== ENCOUNTER 2020-04-26 11:34 | Emergency (ER) | payer MEDICARE, OTHER ==
[~2020-04-26] VITALS: Ht 182.9 cm; Wt 78.0 kg
[~2020-04-26 11:34] MED LIST changes: +ALBU90OI INH; +ALLO100 PO; +CHLO10T PO; +DONE10 PO; +LOPE2C PO; +MIDODRINE HCL10 MG; +MIDODRINE HCL10 MG PO; +MOME220I INH; +MONT10T PO; +Midodrine HCl10 MG PO; +Omeprazole20 M1 PO; +PRAM.125 PO; +SERT50 PO; +TRANSDERM-SCOP1 EAC3; +VISBIOME PROBI1 EACH PO; +XOPENEX1.25 MG/1
[2020-04-26 12:39] LABS: BASOPHILS ABSOLUTE AUTO 0.04 K/mm3 (0.00-0.23); BASOPHILS PERCENT AUTO 1 % (0-2); EOSINOPHILS ABSOLUTE AUTO 0.36 K/mm3 (0.00-0.68); EOSINOPHILS PERCENT AUTO 5 % (0-6); Hematocrit 28.4 % (37.0-53.0); Hemoglobin 9.1 g/dL (13.5-17.5); IMMATURE GRAN ABSOLUTE AUTO 0.07 K/mm3 (0.00-0.10); IMMATURE GRAN PERCENT AUTO 1 % (0-1); LYMPHOCYTES ABSOLUTE AUTO 0.68 K/mm3 (0.84-5.20); LYMPHOCYTES PERCENT AUTO 9 % (21-46); MONOCYTES ABSOLUTE AUTO 0.66 K/mm3 (0.16-1.47); MONOCYTES PERCENT AUTO 9 % (4-13); Mean Corpuscular HGB 31.1 pg (26.0-34.0); Mean Corpuscular Volume 97 fL (80-100); NEUTROPHILS ABSOLUTE AUTO 5.54 K/mm3 (1.96-9.15); NEUTROPHILS PERCENT AUTO 75 % (41-73); RDW Coefficient Variation 15.4 % (11.7-14.2); RDW Standard Deviation 54.4 fL (35.1-46.3); Red Blood Cell Count 2.93 M/mm3 (4.30-5.90); White Blood Cell Count 7.35 K/mm3 (4.00-11.30)
[2020-04-26 12:57] LABS: Mean Platelet Volume 9.8 fL (9.1-12.4); Platelet Count 156 K/mm3 (150-400)
[2020-04-26 12:59] LABS: Albumin/Globulin Ratio 0.9 (0.8-1.8); Bilirubin, Total 0.6 mg/dL (0.1-1.0); Bun/Creatinine Ratio 8.3 (12.0-20.0); Calcium, Blood 9.4 mg/dL (8.5-10.1); Creatinine, Blood 2.3 mg/dL (0.60-1.20); Globulin, Blood 3.3 g/dL (2.2-4.0); Potassium, Blood 3.7 mmol/L (3.5-5.5); Total Protein, Blood 6.3 g/dL (6.4-8.2); Troponin I 0.062 ng/mL (0.000-0.040)
--- NOTE | 2020-04-26 16:50 | NUR ---
Called to ER to meet with patient and his . Pt slept through most of the conversation. states he is more fatigued and it is getting harder to make to dialysis. She states she has great caregiver help at home from family friend and her grandson. We reviewed tolerance of dialysis and fluid balance. Suggest she ask if he can cut down on his treatment day or length of treatment. discussed eventual plan for end of life when they are ready, she appreciated a through discussion of his life and the extrodianry decision of when to stop dialysis. they are not ready for that path but she is understtanding it is getting closer. gave her contact information to call us for support.
== END 2020-04-26 14:45 | disposition home or self-care (01) ==
LOC: ER 11:34
PROVIDERS: Physician Assistant
DX: T80.89XA Other complications following infusion, transfusion and therapeutic injection, initial encounter (principal); I12.9 Hypertensive chronic kidney disease with stage 1 through stage 4 chronic kidney disease, or unspecified chronic kidney disease; N18.6 End stage renal disease; E87.8 Other disorders of electrolyte and fluid balance, not elsewhere classified; D53.9 Nutritional anemia, unspecified; E78.5 Hyperlipidemia, unspecified; I48.0 Paroxysmal atrial fibrillation; Z99.2 Dependence on renal dialysis; Z79.899 Other long term (current) drug therapy; Z79.51 Long term (current) use of inhaled steroids
CPT/HCPCS: 36415; 71045; 80053; 84484; 85025; 99284-25

== ENCOUNTER 2020-05-18 11:05 | Emergency (ER) | payer MEDICARE, OTHER ==
[~2020-05-18] VITALS: Ht 182.9 cm; Wt 77.1 kg
[~2020-05-18 11:05] MED LIST changes: +ACIDOPHILUS1 EAC3 PO; +Diltiazem ER60 MG PO; +LEVALBUTER1.25 MG/01 INH; +MERIBIN5 M1 PO; +OMEP20ER PO; +QVAR REDIHALE10.6 G3 INH; +Vitamin B-121000 MCG PO
[2020-05-18 12:12] LABS: BASOPHILS ABSOLUTE AUTO 0.05 K/mm3 (0.00-0.23); BASOPHILS PERCENT AUTO 1 % (0-2); EOSINOPHILS ABSOLUTE AUTO 0.15 K/mm3 (0.00-0.68); EOSINOPHILS PERCENT AUTO 2 % (0-6); Hematocrit 28.8 % (37.0-53.0); Hemoglobin 8.8 g/dL (13.5-17.5); IMMATURE GRAN ABSOLUTE AUTO 0.05 K/mm3 (0.00-0.10); IMMATURE GRAN PERCENT AUTO 1 % (0-1); LYMPHOCYTES PERCENT AUTO 8 % (21-46); MONOCYTES ABSOLUTE AUTO 0.72 K/mm3 (0.16-1.47); MONOCYTES PERCENT AUTO 9 % (4-13); Mean Corpuscular HGB 30.7 pg (26.0-34.0); Mean Corpuscular HGB Conc 30.6 g/dL (31.5-36.5); Mean Corpuscular Volume 100 fL (80-100); Mean Platelet Volume 11.4 fL (9.1-12.4); NEUTROPHILS ABSOLUTE AUTO 6.42 K/mm3 (1.96-9.15); NEUTROPHILS PERCENT AUTO 80 % (41-73); NRBC ABSOLUTE 0.02 K/mm3 (0.00-0.02); NRBC Auto 0.3 /100 WBC (0.0-0.2); Platelet Count 158 K/mm3 (150-400); RDW Coefficient Variation 18.1 % (11.7-14.2); RDW Standard Deviation 64.3 fL (35.1-46.3); Red Blood Cell Count 2.87 M/mm3 (4.30-5.90); White Blood Cell Count 7.99 K/mm3 (4.00-11.30)
[2020-05-18 12:37] LABS: Albumin, Blood 3.5 g/dL (3.4-5.0); Bilirubin, Total 0.9 mg/dL (0.1-1.0); Bun/Creatinine Ratio 8.3 (12.0-20.0); Calcium, Blood 9.6 mg/dL (8.5-10.1); Creatinine, Blood 2.54 mg/dL (0.60-1.20); Globulin, Blood 3.6 g/dL (2.2-4.0); Potassium, Blood 4.4 mmol/L (3.5-5.5); Total Protein, Blood 7.1 g/dL (6.4-8.2)
[2020-05-18 16:28] LABS: Influenza A, PCR Negative (NEGATIVE); Influenza B, PCR Negative (NEGATIVE); Resp Syncytial Virus, PCR Negative (NEGATIVE); SARS-Cov-2 (COVID-19) PCR, MMC Negative (NEGATIVE)
== END 2020-05-18 15:34 | disposition home or self-care (01) ==
LOC: ER 11:05
PROVIDERS: Emergency Medicine
DX: I28.8 Other diseases of pulmonary vessels (principal); I12.9 Hypertensive chronic kidney disease with stage 1 through stage 4 chronic kidney disease, or unspecified chronic kidney disease; N18.6 End stage renal disease; D64.9 Anemia, unspecified; Z20.822 Contact with and (suspected) exposure to COVID-19; Z88.1 Allergy status to other antibiotic agents; Z88.8 Allergy status to other drugs, medicaments and biological substances; Z79.899 Other long term (current) drug therapy; Z79.51 Long term (current) use of inhaled steroids
CPT/HCPCS: 0241U; 36415; 71046; 74176; 80053; 83690; 83880; 85025; 99284-25; A9270

== ENCOUNTER 2020-05-30 11:05 | Emergency (ER) | payer MEDICARE, OTHER ==
[~2020-05-30] VITALS: Ht 182.9 cm; Wt 77.1 kg
[2020-05-30 11:53] LABS: BASOPHILS ABSOLUTE AUTO 0.04 K/mm3 (0.00-0.23); BASOPHILS PERCENT AUTO 1 % (0-2); EOSINOPHILS ABSOLUTE AUTO 0.14 K/mm3 (0.00-0.68); EOSINOPHILS PERCENT AUTO 2 % (0-6); Hematocrit 30.5 % (37.0-53.0); Hemoglobin 9.3 g/dL (13.5-17.5); IMMATURE GRAN ABSOLUTE AUTO 0.03 K/mm3 (0.00-0.10); IMMATURE GRAN PERCENT AUTO 0 % (0-1); LYMPHOCYTES ABSOLUTE AUTO 0.75 K/mm3 (0.84-5.20); LYMPHOCYTES PERCENT AUTO 10 % (21-46); MONOCYTES PERCENT AUTO 9 % (4-13); Mean Corpuscular HGB 30.9 pg (26.0-34.0); Mean Corpuscular HGB Conc 30.5 g/dL (31.5-36.5); Mean Corpuscular Volume 101 fL (80-100); Mean Platelet Volume 9.9 fL (9.1-12.4); NEUTROPHILS ABSOLUTE AUTO 6.13 K/mm3 (1.96-9.15); NEUTROPHILS PERCENT AUTO 79 % (41-73); Platelet Count 148 K/mm3 (150-400); RDW Coefficient Variation 18.1 % (11.7-14.2); Red Blood Cell Count 3.01 M/mm3 (4.30-5.90); White Blood Cell Count 7.79 K/mm3 (4.00-11.30)
[2020-05-30 12:26] LABS: Albumin, Blood 3.8 g/dL (3.4-5.0); Albumin/Globulin Ratio 1.2 (0.8-1.8); Bilirubin, Total 0.9 mg/dL (0.1-1.0); Bun/Creatinine Ratio 5.7 (12.0-20.0); Calcium, Blood 9.7 mg/dL (8.5-10.1); Creatinine, Blood 2.62 mg/dL (0.60-1.20); Globulin, Blood 3.1 g/dL (2.2-4.0); Potassium, Blood 3.4 mmol/L (3.5-5.5); Total Protein, Blood 6.9 g/dL (6.4-8.2)
[2020-05-30 13:51] LABS: Troponin I 0.029 ng/mL (0.000-0.040)
[2020-05-30] MEDS ORDERED: ONDA4ODT MM (14:31)
[2020-05-30] MEDS ORDERED: METO10 PO (14:31)
== END 2020-05-30 14:49 | disposition home or self-care (01) ==
LOC: ER 11:05
PROVIDERS: Emergency Medicine
DX: R11.2 Nausea with vomiting, unspecified (principal); Z88.1 Allergy status to other antibiotic agents; Z88.8 Allergy status to other drugs, medicaments and biological substances; Z79.899 Other long term (current) drug therapy; Z87.442 Personal history of urinary calculi
CPT/HCPCS: 74176; 80053; 83690; 84484; 85025; 93005; 93010; 96374; 99284-25; J2765

== ENCOUNTER 2020-06-04 10:56 | Emergency (ER) | payer MEDICARE, OTHER ==
[~2020-06-04] VITALS: Ht 177.8 cm; Wt 77.1 kg
[~2020-06-04 10:56] MED LIST changes: +METO10 PO
[2020-06-04] MEDS ORDERED: ACET500 PO (11:17)
[2020-06-04] MEDS ORDERED: CEFP200 PO (11:18)
[2020-06-04] MEDS ORDERED: Biotin800 MCG PO (11:18)
[2020-06-04] MEDS ORDERED: CYCL10 PO (11:19)
[2020-06-04] MEDS ORDERED: B-121000 MC3 PO (11:19)
[2020-06-04] MEDS ORDERED: CHLO10T PO (11:19)
[2020-06-04 11:22] LABS: BASOPHILS ABSOLUTE AUTO 0.06 K/mm3 (0.00-0.23); BASOPHILS PERCENT AUTO 1 % (0-2); EOSINOPHILS ABSOLUTE AUTO 0.28 K/mm3 (0.00-0.68); EOSINOPHILS PERCENT AUTO 4 % (0-6); Hematocrit 29.4 % (37.0-53.0); Hemoglobin 8.9 g/dL (13.5-17.5); IMMATURE GRAN ABSOLUTE AUTO 0.02 K/mm3 (0.00-0.10); IMMATURE GRAN PERCENT AUTO 0 % (0-1); LYMPHOCYTES ABSOLUTE AUTO 1.09 K/mm3 (0.84-5.20); LYMPHOCYTES PERCENT AUTO 15 % (21-46); MONOCYTES ABSOLUTE AUTO 0.85 K/mm3 (0.16-1.47); MONOCYTES PERCENT AUTO 12 % (4-13); Mean Corpuscular HGB Conc 30.3 g/dL (31.5-36.5); Mean Corpuscular Volume 102 fL (80-100); Mean Platelet Volume 10.9 fL (9.1-12.4); NEUTROPHILS ABSOLUTE AUTO 4.85 K/mm3 (1.96-9.15); NEUTROPHILS PERCENT AUTO 68 % (41-73); NRBC ABSOLUTE 0.03 K/mm3 (0.00-0.02); NRBC Auto 0.4 /100 WBC (0.0-0.2); Platelet Count 157 K/mm3 (150-400); RDW Coefficient Variation 17.7 % (11.7-14.2); RDW Standard Deviation 65.6 fL (35.1-46.3); Red Blood Cell Count 2.87 M/mm3 (4.30-5.90); White Blood Cell Count 7.15 K/mm3 (4.00-11.30)
[2020-06-04] MEDS ORDERED: DILT60 PO (11:22)
[2020-06-04] MEDS ORDERED: GUAI600T33 PO (11:22)
[2020-06-04] MEDS ORDERED: DONEPEZIL HCL10 MG PO (11:22)
[2020-06-04] MEDS ORDERED: MONT10T PO (11:23)
[2020-06-04] MEDS ORDERED: LOPE2C PO (11:23)
[2020-06-04] MEDS ORDERED: LEVALBUTER1.25 MG/1 IH (11:23)
[2020-06-04] MEDS ORDERED: MIDO5 PO (11:23)
[2020-06-04] MEDS ORDERED: OMEP20ER PO (11:23)
[2020-06-04] MEDS ORDERED: Mirapex0.125 MG PO (11:24)
[2020-06-04] MEDS ORDERED: PRED5 PO (11:24)
[2020-06-04] MEDS ORDERED: OXYC5 PO (11:24)
[2020-06-04] MEDS ORDERED: ONDA4ODT MM (11:24)
[2020-06-04] MEDS ORDERED: PROM25 PO (11:25)
[2020-06-04] MEDS ORDERED: TRANSDERM-SCOP1 EAC1 TD (11:25)
[2020-06-04 11:34] LABS: Albumin, Blood 3.5 g/dL (3.4-5.0); Albumin/Globulin Ratio 1.1 (0.8-1.8); Bun/Creatinine Ratio 7.8 (12.0-20.0); Calcium, Blood 10.2 mg/dL (8.5-10.1); Creatinine, Blood 4.1 mg/dL (0.60-1.20); Globulin, Blood 3.2 g/dL (2.2-4.0); Potassium, Blood 4.3 mmol/L (3.5-5.5); Total Protein, Blood 6.7 g/dL (6.4-8.2); Troponin I 0.072 ng/mL (0.000-0.040)
== END 2020-06-04 13:15 | disposition home or self-care (01) ==
LOC: ER 10:56
PROVIDERS: Emergency Medicine
DX: R06.00 Dyspnea, unspecified (principal); Z79.52 Long term (current) use of systemic steroids; Z79.899 Other long term (current) drug therapy; Z87.442 Personal history of urinary calculi; Z88.8 Allergy status to other drugs, medicaments and biological substances; Z88.1 Allergy status to other antibiotic agents
CPT/HCPCS: 36415; 71045; 80053; 84484; 85025; 93005; 93010; 99285-25